=== PATIENT | female | born 1935 | race Caucasian/White ===

== ENCOUNTER 2017-07-24 09:13 | Observation (INO) | payer OTHER ==
[2017-07-24] MEDS ORDERED: ONDANSETRON 4 MG/2 ML VIAL IVP ONE (09:31)
[2017-07-24 09:47] LABS: PLATELET COUNT 270 10^3/uL (150-400)
--- NOTE | 2017-07-24 09:50 | EDPHY ---
H & P Time Seen by Provider: 07/24/17 09:23 HPI/ROS: CHIEF COMPLAINT: Vomiting and diarrhea HISTORY OF PRESENT ILLNESS: 82-year-old female presents with vomiting and diarrhea. Onset of nausea last evening, followed by multiple episodes of vomiting and loose stools. Unable to tolerate any oral fluids. The stools are loose, but not watery or bloody. No associated abdominal pain or fever. No known ill contacts. History of paroxysmal atrial fibrillation, previously on Xarelto, now off anticoagulation. Takes diltiazem daily, but did not take diltiazem today because of vomiting. REVIEW OF SYSTEMS: Constitutional: No fever, no chills Eyes: No visual changes ENT: No sore throat Respiratory: No cough, no shortness of breath Cardiac: No chest pain Genitourinary: no dysuria Musculoskeletal: No myalgias Skin: No rash Neurological: No headache Psychiatric: No depression Past Medical/Surgical History: Paroxysmal atrial fibrillation Social History: Lives at [facility] Smoking Status: Never smoked Physical Exam: General Appearance: Alert, pleasant, nontoxic Eyes: Pupils equal and round, no conjunctival pallor or injection ENT, Mouth: Mucous membranes moist Neck: Normal inspection Respiratory: Lungs are clear to auscultation Cardiovascular: regular tachycardia Gastrointestinal: Abdomen is soft and nontender Neurological: A&O, nonfocal exam Skin: Warm and dry, no rash Extremities: Nontender, no pedal edema Psychiatric: Mood and affect normal Constitutional: Initial Vital Signs Temperature (C) 36.6 C 07/24/17 09:18 Heart Rate 95 07/24/17 09:18 Respiratory Rate 17 07/24/17 09:18 Blood Pressure 155/88 H 07/24/17 09:18 O2 Sat (%) 93 07/24/17 09:18 O2 Delivery Mode Room Air Allergies/Adverse Reactions: amlodipine [From Norvasc] Allergy (Verified 07/24/17 11:34) light headedness atorvastatin calcium [From Lipitor] Allergy (Verified 07/24/17 11:34) muscle weakness nebivolol [From Bystolic] Allergy (Verified 07/24/17 11:34) fatigue pitavastatin Allergy (Verified 07/24/17 11:34) muscle weakness pravastatin Allergy (Verified 07/24/17 11:34) muscle weakness rosuvastatin [From Crestor] Allergy (Verified 07/24/17 11:34) musle weakness Home Medications: Medication Instructions Recorded Albuterol [Proventil Inhaler HFA 1 - 2 puffs IH Q6HRS PRN 09/27/13 (*)] Fluticasone Nasal [Flonase Nasal 1 sprays EACHNARE DAILY PRN 09/27/13 [place]] Diltiazem HCl [Diltiazem 24Hr Cd] 180 mg PO DAILY 04/04/16 Estradiol [VAGIFEM] 1 tab VG TUFR 04/04/16 Fluticasone Hfa 220 Mcg [Flovent 1 inh IH BID 04/04/16 220 MCG Hfa MDI (*)] Alendronate Sodium [Fosamax 70 MG 70 mg PO TU@0700 07/24/17 (*)] Loratadine 10 mg PO DAILY PRN 07/24/17 Medical Decision Making - Diagnostics EKG Interpretation: EKG interpreted by me reveals atrial fibrillation, ventricular rate 135, inferior Q waves. ED Course/Re-evaluation: This patient presents with vomiting and diarrhea, associated with moderate dehydration. IV normal saline 1 L ordered. After my exam, the patient's heart rate increased to the 140s and monitor revealed atrial fibrillation with RVR. EKG reveals no evidence of ischemia. She is asymptomatic with the atrial fibrillation and denies chest pain, shortness of breath or palpitations. IV normal saline 1 L infusing. If she continues to be in rapid atrial fibrillation after the 1st L of normal saline, I will proceed with rate control with diltiazem IV. 10:40 a.m.-after 1 L of normal saline, she remains in atrial fibrillation, with a ventricular rate in the 120s. She declines diltiazem at this time. She requests a 2nd L of IV fluids and then reassessment. Abd remains soft and NT. After 2nd liter of IVF, HR remains in the 130's. Agrees to Diltiazem IV. Diltiazem 10mg IV followed by a Diltiazem drip. HR improved, BP 90's, pt asymptomatic, will continue Dilt drip and IV hydration. The Hospitalist service was consulted for admission. Abd exam unchanged. Critical care time: this pt utilized 35 minutes of critical care time by me exclusive of unbundled procedures, exclusive of unbundled procedures. Time spent in direct patient contact, warehouse order picker, review of EKG and labs, consultation. Organ at risk: heart Differential Diagnosis: Differential diagnosis for vomiting and diarrhea includes though it is not limited to appendicitis, cholecystitis, diverticulitis, pyelonephritis, bowel perforation, small bowel obstruction. - Data Points Laboratory Results: Laboratory Results 07/24/17 09:37 07/24/17 09:37 Medications Given: Discontinued Medications Diltiazem HCl (Cardizem 25 Mg/5 Ml Vial) 10 mg IVP EDNOW ONE Stop: 07/24/17 11:05 Last Admin: 07/24/17 11:42 Dose: 10 mg Diltiazem HCl (Cardizem Er Q24hr) 180 mg PO DAILY [place] Stop: 01/20/18 11:59 Last Admin: 07/25/17 12:09 Dose: 180 mg Enoxaparin Sodium (Lovenox) 40 mg SC DAILY [facility] Stop: 01/21/18 08:59 Last Admin: 07/25/17 12:36 Dose: Not Given Fluticasone Propionate (Flovent Hfa) 1 puffs IH BID [facility] Stop: 01/20/18 20:59 Last Admin: 07/25/17 10:26 Dose: 1 puffs Sodium Chloride (Ns) 1,000 mls @ 0 mls/hr IV ONCE ONE; Wide Open PRN Reason: Protocol Stop: 07/24/17 09:47 Last Admin: 07/24/17 11:42 Dose: 1,000 mls Sodium Chloride (Ns) 1,000 mls @ 0 mls/hr IV ONCE ONE PRN Reason: Wide Open Stop: 07/24/17 11:03 Last Admin: 07/24/17 11:45 Dose: 1,000 mls Diltiazem HCl 125 mg/ Dextrose 125 mls @ 0 mls/hr IV EDNOW ONE; As Directed PRN Reason: Protocol Stop: 07/24/17 11:38 Last Admin: 07/24/17 13:48 Dose: Not Given Potassium Chloride 20 meq/ (Dextrose/Sodium Chloride) 1,000 mls @ 150 mls/hr IV CONT [facility] Stop: 01/20/18 11:59 Last Admin: 07/25/17 03:17 Dose: 1,000 mls Miscellaneous Medication (Estradiol [Vagifem]) 1 tab VG TUFR [facility] Stop: 01/20/18 11:59 Last Admin: 07/24/17 13:48 Dose: Not Given Ondansetron HCl (Zofran) 4 mg IVP EDNOW ONE Stop: 07/24/17 09:32 Last Admin: 07/24/17 09:57 Dose: 4 mg Departure - Departure Disposition: [facility] Inpatient Acute Clinical Impression: Acute gastroenteritis, Atrial fibrillation with RVR Condition: Fair
--- NOTE | 2017-07-24 09:50 | CPEKG ---
Heart Rate: 135 RR Interval: 444 QRSD Interval: 86 QT Interval: 324 QTC Interval: 486 QRS [place]: 30 T Wave [place]: 121 EKG Severity - ABNORMAL ECG - EKG Impression: ATRIAL FIBRILLATION, V-RATE 103-158 EKG Impression: PROBABLE INFERIOR INFARCT, OLD EKG Impression: REPOLARIZATION ABNORMALITY, PROB RATE RELATED EKG Impression: LATERAL LEADS ARE ALSO INVOLVED EKG Impression: BORDERLINE PROLONGED QT INTERVAL Electronically Signed By: Jen Nuno 24-Jul-2017 15:14:57
[2017-07-24] MEDS: NS 1,000 ML IV ONE ×2 (09:57→11:42)
[2017-07-24] MEDS ORDERED: NS 1,000 ML IV ONE (11:02)
[2017-07-24] MEDS ORDERED: DILTIAZEM 25 MG/5 ML VIAL IVP ONE (11:04)
[2017-07-24] MEDS ORDERED: DILTIAZEM 125 MG in D5W 125 ML IV ONE (11:37)
[2017-07-24] MEDS ORDERED: ONDANSETRON 4 MG/2 ML VIAL IVP PRN (11:44)
[2017-07-24] MEDS ORDERED: ACETAMINOPHEN 325 MG TAB PO PRN (11:44)
[2017-07-24] MEDS ORDERED: PROMETHAZINE HCL 25 MG/ML INJ IVP PRN (11:44)
[2017-07-24] MEDS ORDERED: PROMETHAZINE HCL 25 MG TAB PO PRN (11:44)
[2017-07-24] MEDS ORDERED: ONDANSETRON DISINTEGRATING 4 MG TAB PO PRN (11:44)
[2017-07-24] MEDS ORDERED: FLUTICASONE NASAL 120 SPRAYS/16 GM MDI EACHNARE PRN (11:47)
[2017-07-24] MEDS ORDERED: ALBUTEROL 60 PUFFS/8 GM MDI IH PRN (11:47)
[2017-07-24] MEDS ORDERED: ESTRADIOL VG SCH (12:00)
[2017-07-24] MEDS: DILTIAZEM CD 180 MG CAP PO SCH (13:09)
--- NOTE | 2017-07-24 13:32 | PDGENHP ---
History and Physical - Chief Complaint Acute vomiting - History of Present Illness Primary Cards: Dr. Kaiser HPI: 82 yo F p/w acute vomiting characterized as non-bloody emesis which has been intractable, occurring every 30 minutes, with onset of symptoms last PM. It has been associated with nausea and nonbloody diarrhea. The patient was otherwise in her usual state of health on the evening prior to this presentation , eating dinner with family and friends, no other person's became ill. The patient reported that her 1st symptom was nausea, followed by the intractable vomiting. She has been unable to tolerate any oral intake, as this seems to exacerbate the nausea. This morning she was unable to take her home medications secondary to the nausea. She reports that she has never experienced similar symptoms. She denies any overt abdominal pain, denies chest pain, denies palpitations or shortness of breath. History Information - Allergies/Home Medication List Allergies/Adverse Reactions: amlodipine [From Norvasc] Allergy (Verified 07/24/17 11:34) light headedness atorvastatin calcium [From Lipitor] Allergy (Verified 07/24/17 11:34) muscle weakness nebivolol [From Bystolic] Allergy (Verified 07/24/17 11:34) fatigue pitavastatin Allergy (Verified 07/24/17 11:34) muscle weakness pravastatin Allergy (Verified 07/24/17 11:34) muscle weakness rosuvastatin [From Crestor] Allergy (Verified 07/24/17 11:34) musle weakness Home Medications: Albuterol [Proventil Inhaler HFA (*)] 1 - 2 puffs IH Q6HRS PRN 09/27/13 [Last Taken 07/23/17 21:00] Fluticasone Nasal [Flonase Nasal [place]] 1 sprays EACHNARE DAILY PRN 09/27/13 [ Last Taken 09/26/13 06:00] Diltiazem HCl [Diltiazem 24Hr Cd] 180 mg PO DAILY 04/04/16 [Last Taken 07/23/17] Estradiol [VAGIFEM] 1 tab VG TUFR 04/04/16 [Last Taken 07/21/17] Fluticasone Hfa 220 Mcg [Flovent 220 MCG Hfa MDI (*)] 1 inh IH BID 04/04/16 [ Last Taken 07/23/17 21:00] Alendronate Sodium [Fosamax 70 MG (*)] 70 mg PO TU@0700 07/24/17 [Last Taken 09/06] Loratadine 10 mg PO DAILY PRN 07/24/17 [Last Taken Unknown] I have personally reviewed and updated: family history, medical history, social history, surgical history - Past Medical History atrial fibrillation (Paroxysmal, last ambulatory event monitor was 2 years ago, the patient reportedly had no events, systemic anticoagulation was discontinued , she was placed on low-dose aspirin), asthma (Persistent with allergic rhinitis ), CVA (With small lacunar infarcts in November of 2012), hypertension, hyperlipidemia Additional medical history: Osteoarthritis - Surgical History Additional surgical history: Cataracts, rotator cuff comma elbow ORIF, mastectomy x2, hysterectomy, tonsillectomy, DIC - Family History Additional family history: Father with sudden cardiac at age 76, mother with myocardial infarction at age 74, younger sibling with myocardial infarction - Social History Smoking Status: Never smoked Alcohol Use: Other (Patient regular has a glass of wine nightly) Drug Use: None Additional social history: Lives at [facility], physically active, no recent reduction in exercise tolerance Review of Systems Review of Systems: ROS: 10pt was reviewed & negative except for what was stated in HPI & below Gastrointestinal: Reports: vomitting, diarrhea, nausea Physical Exam Physical Exam: Temp Pulse Resp BP Pulse Ox 37.1 C 119 H 22 H 113/62 93 07/24/17 13:12 07/24/17 13:12 07/24/17 13:12 07/24/17 13:12 07/24/17 13:12 O2 (L/minute) 2.0 Constitutional: no apparent distress, appears nourished, not in pain Eyes: PERRL, anicteric sclera, EOMI Ears, Nose, Mouth, Throat: moist mucous membranes, hearing normal, ears appear normal, no oral mucosal ulcers Cardiovascular: systolic murmur (1/6 sternum), irregularly irregular, tachycardia, No edema Respiratory: no respiratory distress, no rales or rhonchi, clear to auscultation Gastrointestinal: normoactive bowel sounds, soft, non-tender abdomen, no palpable masses Genitourinary: other (Bladder fullness and mild discomfort on palpation) Skin: warm, No mottled, No rash Neurologic: AAOx3, sensation intact bilaterally, No weakness, No facial droop Psychiatric: interacting appropriately, not anxious, not encephalopathic, thought process linear Lab Data & Imaging Review 07/24/17 09:37 07/24/17 09:37 WBC 14.94 10^3/uL (3.80-9.50) H 07/24/17 09:37 RBC 5.17 10^6/uL (4.18-5.33) 07/24/17 09:37 Hgb 16.2 g/dL (12.6-16.3) 07/24/17 09:37 Hct 46.3 % (38.0-47.0) 07/24/17 09:37 MCV 89.6 fL (81.5-99.8) 07/24/17 09:37 MCH 31.3 pg (27.9-34.1) 07/24/17 09:37 MCHC 35.0 g/dL (32.4-36.7) 07/24/17 09:37 RDW 13.1 % (11.5-15.2) 07/24/17 09:37 Plt Count 270 10^3/uL (150-400) 07/24/17 09:37 MPV 10.1 fL (8.7-11.7) 07/24/17 09:37 Neut % (Auto) 93.6 % (39.3-74.2) H 07/24/17 09:37 Lymph % (Auto) 2.1 % (15.0-45.0) L 07/24/17 09:37 [place] % (Auto) 3.3 % (4.5-13.0) L 07/24/17 09:37 Eos % (Auto) 0.4 % (0.6-7.6) L 07/24/17 09:37 Baso % (Auto) 0.3 % (0.3-1.7) 07/24/17 09:37 Nucleat RBC Rel Count 0.0 % (0.0-0.2) 07/24/17 09:37 Absolute Neuts (auto) 13.98 10^3/uL (1.70-6.50) H 07/24/17 09:37 Absolute Lymphs (auto) 0.31 10^3/uL (1.00-3.00) L 07/24/17 09:37 Absolute Monos (auto) 0.50 10^3/uL (0.30-0.80) 07/24/17 09:37 Absolute Eos (auto) 0.06 10^3/uL (0.03-0.40) 07/24/17 09:37 Absolute Basos (auto) 0.04 10^3/uL (0.02-0.10) 07/24/17 09:37 Absolute Nucleated RBC 0.00 10^3/uL (0-0.01) 07/24/17 09:37 Immature Gran % 0.3 % (0.0-1.1) 07/24/17 09:37 Immature Gran # 0.05 10^3/uL (0.00-0.10) 07/24/17 09:37 Sodium 143 mEq/L (134-144) 07/24/17 09:37 Potassium 3.9 mEq/L (3.5-5.2) 07/24/17 09:37 Chloride 108 mEq/L (97-110) 07/24/17 09:37 Carbon Dioxide 20 mEq/l (22-31) L 07/24/17 09:37 Anion Gap 15 mEq/L (8-16) 07/24/17 09:37 BUN 19 mg/dL (7-23) 07/24/17 09:37 Creatinine 0.6 mg/dL (0.6-1.0) 07/24/17 09:37 Estimated GFR > 60 07/24/17 09:37 Glucose 150 mg/dL (70-100) H 07/24/17 09:37 Calcium 9.7 mg/dL (8.5-10.4) 07/24/17 09:37 Nasal Influenza A PCR NEGATIVE FOR FLU A (NEGATIVE) 07/24/17 09:50 Nasal Influenza B PCR NEGATIVE FOR FLU B (NEGATIVE) 07/24/17 09:50 Visualized and Interpreted Chest x-ray results: Yes Chest X-Ray results: no infiltrate Visualized and Interpreted EKG results: Yes EKG Interpretation: Negative for: other (Atrial fibrillation with rapid ventricular response, ST depression in lead V5) Assessment & Plan Assessment: 82-year-old female presenting with atrial fibrillation and acute rapid ventricular response, in the setting of systemic inflammatory response syndrome and suspected gastroenteritis Plan: 1. Atrial fibrillation. Paroxysmal, acute rapid ventricular response, asymptomatic, most likely provoked by gastroenteritis -patient declined IV diltiazem in the emergency department, she has tolerated her home dosage of oral diltiazem 180 mg this afternoon -given the patient is neither hypotensive no symptomatic from her rapid ventricular response, would recommend holding any additional p.r.n. medications and monitoring the affect of her oral diltiazem -reviewed outside records including 04/05/[address] Kamilla Owen, it identified that the patient had a history of AFib, was on diltiazem, had been taken off of Xarelto -continue IV fluid hydration, as the AFib is most likely being provoked by her volume status -continue home aspirin 2. Suspected gastroenteritis. Acute, new problem this provider, further workup indicated. Evidenced by nausea, vomiting, diarrhea, leukocytosis, abrupt onset -no red flag findings on physical exam, hold on any abdominal imaging at this time -get a GI PCR panel to ensure she does not have a particularly contagious virus -flu PCR neg -continue supportive care with antiemetics, IV fluids, Imodium if bacterial cause ruled out 3. Systemic inflammatory response syndrome. Acute, evidenced by leukocytosis, tachycardia, tachypnea, most likely secondary to gastroenteritis, I do not believe the patient has sepsis -continue IV fluids -continue monitor white blood cell count and vital signs 4. Hypertension. Hold any other home antihypertensive medications Diet. Bowel rest with NPO, sips and chips okay, advance diet as desired Prophylaxis. High risk patient, Lovenox 40 Code. Do not resuscitate per patient, is MD RODRIGUEZ Disposition. Anticipated discharge is 07/25/2017, pending further workup and stabilization of condition outlined above. I have discussed patient's presentation with Maxine Garvin, hospitalist provider , she has signed out the patient to me for evaluation.
[2017-07-24] MEDS: POTASSIUM Cl (KCl) 20 MEQ in D5W NS 1,000 ML IV SCH ×2 (13:43→21:48)
[2017-07-24] MEDS: FLUTICASONE HFA 220 MCG MDI IH SCH (21:31)
[2017-07-25] MEDS: POTASSIUM Cl (KCl) 20 MEQ in D5W NS 1,000 ML IV SCH (03:17)
[2017-07-25 04:10] LABS: PLATELET COUNT 215 10^3/uL (150-400)
[2017-07-25 08:05] VITALS: BP 124/61; PULSE 84; TEMP 98.6
[2017-07-25] MEDS ORDERED: CETIRIZINE 10 MG TAB PO PRN (09:00)
[2017-07-25] MEDS ORDERED: ENOXAPARIN 40 MG/0.4 ML SYR SC SCH (09:00)
[2017-07-25] MEDS: FLUTICASONE HFA 220 MCG MDI IH SCH (10:26)
[2017-07-25 10:37] VITALS: RESP 18; O2SAT 94
--- NOTE | 2017-07-25 11:01 | PDDCSUM ---
Discharge Summary Discharge Summary: DISCHARGE SUMMARY FOLLOW-UP ITEMS: Potentially repeat 30 day event monitor DATE OF ADMISSION: 07/24/2017 DATE OF DISCHARGE: 07/25/2017 DISCHARGE DIAGNOSES: 1. Suspected gastroenteritis 2. Paroxysmal atrial fibrillation with acute rapid ventricular response 3. Systemic inflammatory response syndrome CONSULTATIONS: None PROCEDURES / IMAGING: None CHIEF COMPLAINT: Acute nausea vomiting and diarrhea SUBJECTIVE: Patient is feeling well at time discharge, she has not had any subsequent episodes of diarrhea, she is tolerating an oral diet PHYSICAL EXAM ON DISCHARGE: Systolic blood pressure is 120-130, heart rate 80-90, normal sinus mechanism, satting on room air, abdomen is soft nontender, bowel sounds present, heart rhythm is regular, normal rate LABS ON DISCHARGE: Creatinine 0.6, potassium 3.9, white blood cell count 7000, hemoglobin 11.8, liver panel unremarkable HOSPITAL COURSE BY PROBLEM: The patient presented with acute suspected gastroenteritis evidenced by nausea vomiting and diarrhea, resulting in systemic inflammatory response syndrome with tachycardia, tachypnea, leukocytosis, which responded to bowel rest and supportive care with IV fluids and antiemetics. We attempted to perform a GI PCR panel, but the patient's symptoms resolved prior to being able to. The patient did experience provoked paroxysmal atrial fibrillation with acute rapid ventricular response and heart rates in the 130-140 range. Her Afib is notably asymptomatic. This is most likely secondary to hypovolemia and missing her morning dosage of diltiazem. The patient's nausea symptoms were controlled, she tolerated her oral diltiazem, and she received IV fluids, spontaneously cardioverting later in the day. She remained on telemetry overnight and did not have any subsequent episodes of paroxysmal atrial fibrillation. Her diet was advanced on the morning of July 25, and she tolerated oral diet without any issues. DISCHARGE MEDICATIONS: Please see official discharge medication reconciliation sheet in chart , continue home medications. DISCHARGE INSTRUCTIONS: Recommend potential outpatient 30 day event monitor through the office of Dr. Katie Kaiser, to reassess whether the patient experiences any asymptomatic paroxysmal atrial fibrillation which could require systemic anticoagulation for CVA prevention.
[2017-07-25] MEDS: DILTIAZEM CD 180 MG CAP PO SCH (12:09)
--- NOTE | 2017-07-25 12:20 | ASDISCHSUM ---
Discharge Information Plan Status:Home with No Needs Medically Cleared to Leave:07/24/2017 Discharge Date:07/25/2017 12:12 PM CM D/C Disposition:Home, Routine, Self-Care ADT D/C Disposition:Home, Routine, Self-Care Projected Discharge Date:07/25/2017 12:12 PM Transportation at D/C:Family Discharge Delay Reason: Follow-Up Date:07/25/2017 12:12 PM Discharge Slot:2 - 12:01 pm - 18:00 pm Final Diagnosis:Suspected gastroenteritis, paroxysmal afib w/ acute RVR, systemic inflammatory respo nse syndrome Placement Information Patient Contact Information Contact Name:DONNELL Relationship: Address:[address] [place] [address] City:[place] Alternate Phone: State/Zip Code:[place] [address] Email: Financial Information Financial Class: Primary Plan Desc:MEDICARE OUTPATIENT Primary Plan Number:[id number] Secondary Plan Desc:[employer] Secondary Plan Number:[id number] Assessment Information [facility] CM Progress Note CM Note CM Note Notes: Pt admitted for acute nausea and vomiting. Per MD notes, suspected gastroenteritis and systemic inflammatory response syndrome; pt to discharge home independently w/ family support and no identified needs. Pt lives at [facility] (in independent living) with her . Pt to follow up as directed. No IM signed, admission <24 hrs. CM avail for any further issues or concerns. Discharge plan: Home independently Date Signed: 07/25/2017 12:19 PM Electronically Signed By:Meenakshi Freeman RN Intervention Information
== END 2017-07-25 12:12 | disposition home or self-care (01) ==
LOC: F2W 12:50
PROVIDERS: ADMIT Internal Medicine; ATTEND Internal Medicine
PROC: 3E0337Z Introduction of Electrolytic and Water Balance Substance into Peripheral Vein, Percutaneous Approach (ICD-10-PCS; principal; 2017-07-24)
DX: R11.2 Nausea with vomiting, unspecified (principal); R19.7 Diarrhea, unspecified; R65.10 Systemic inflammatory response syndrome (SIRS) of non-infectious origin without acute organ dysfunction; I48.0 Paroxysmal atrial fibrillation; E86.9 Volume depletion, unspecified; I10 Essential (primary) hypertension; E78.5 Hyperlipidemia, unspecified; J45.909 Unspecified asthma, uncomplicated; Z79.82 Long term (current) use of aspirin; Z86.73 Personal history of transient ischemic attack (TIA), and cerebral infarction without residual deficits; Z82.49 Family history of ischemic heart disease and other diseases of the circulatory system; Z90.13 Acquired absence of bilateral breasts and nipples; Z90.710 Acquired absence of both cervix and uterus
CPT/HCPCS: 93005; 96361; 96374; 96375; 99291; G0378; J2405

== ENCOUNTER 2017-10-25 13:59 | Emergency (ER) | payer OTHER ==
--- NOTE | 2017-10-25 14:19 | CPEKG ---
Heart Rate: 155 RR Interval: 387 QRSD Interval: 84 QT Interval: 308 QTC Interval: 495 QRS [place]: 31 T Wave [place]: 78 EKG Severity - ABNORMAL ECG - EKG Impression: ATRIAL FIBRILLATION WITH RAPID V-RATE EKG Impression: ST DEPRESSION, PROBABLY RATE RELATED Electronically Signed By: Carine Pretty 25-Oct-2017 21:03:59
--- NOTE | 2017-10-25 14:28 | EDPHY ---
H & P Stated Complaint: hx a fib /tachycardia Time Seen by Provider: 10/25/17 14:28 HPI/ROS: CHIEF COMPLAINT: Feels "different," irregular heart rate HISTORY OF PRESENT ILLNESS: The patient is an 82 y/o female arriving with her complaining of feeling "different" with an irregular heart rate onset about 3 hours ago. Her medical history includes atrial fibrillation, asthma, CVA, hypertension, and hyperlipidemia with a recent admission for gastroenteritis in 2017. She began to feel "off" around 11:30 this morning just before going down to have lunch with her family. Afterwards she continued to "just feel different," but denies pain, dyspnea, or other specific symptoms. She and her checked her pulse and found it rapid and irregular. The patient took half a Xanax to see if her symptoms were related to anxiety, though she was not feeling particularly anxious; this did not change her symptoms. She is compliant with her Diltazem and took 180mg this morning. She takes aspirin, but discontinued anticoagulants after a fall. No dyspnea, chest pain, leg swelling, abdominal pain, vomiting, diarrhea, urinary symptoms. No history of diabetes or WI. REVIEW OF SYSTEMS: A ten point review of systems was performed and is negative with the exception of the items mentioned in the HPI. Past medical history: Atrial fibrillation - aspirin, asthma - Flovent, allergic rhinitis, CVA with small lacunar infarcts November 2012, hypertension, hyperlipidemia Past surgical history: cataracts, rotator cuff, elbow ORIF, mastectomy x2, hysterectomy, tonsillectomy Family history: Sudden cardiac of father at age 76, mother with WI at age 74, younger sibling with WI. Social history: Nonsmoker. Small amount of alcohol use. 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 Lives at [facility]. Patient Resource Coordinator: Dr. Kaiser. PCP: Dr. Houston. Prior medical records reviewed including admission 07/24/17 for vomiting. General Appearance: Alert. Vital signs reviewed. BP 126/99, HR 150 Eyes: Pupils equal and round, no conjunctival injection, no discharge. Anicteric. ENT, Mouth: Mucous membranes are moist, no oropharyngeal erythema or edema. Neck: No lymphadenopathy, supple. Respiratory: Lungs are clear to auscultation; no wheezes, rales, or rhonchi. Cardiovascular: Rapid irregular rate and rhythm; no murmur, rub, or gallop. Gastrointestinal: Abdomen is soft and nontender, no masses or organomegaly. Skin: Warm and dry, no rashes on exposed skin, normal color. Back: Nontender to palpation over the thoracolumbar spine. No CVAT. Extremities: No lower extremity edema, no calf tenderness or swelling. Neurological: Alert and oriented. Moving all four extremities easily and equally. Psychiatric: Normal affect. - Personal History Current Tetanus/Diphtheria Vaccine: Yes Tetanus Vaccine Date: 2006 - Medical/Surgical History Hx Asthma: Yes Hx Chronic Respiratory Disease: No Hx Diabetes: No Hx Cardiac Disease: Yes Hx Renal Disease: No Hx Cirrhosis: No Hx Alcoholism: No Hx HIV/AIDS: No Hx Splenectomy or Spleen Trauma: No Other PMH: HX: ASTHMA, MILD ALLERGIC RHINITIS, GLASSES, HTN, EAR INFECTIONS WITH MILD HEARING LOSS, TONSILLECTOMY, MISCARRIAGES, POLYHYDRAMNIOS WITH , HYSTERECTOMY, B SUBCUTANEOUS MASTECTOMIES, FIBROCYSTIC. DISEASE, ELBOW FX, ROTATOR CUFF TEARS AND REPAIRS, CATARACTS SURGERY, STROKE NOVEMBER 2012, afib - Social History Smoking Status: Never smoked Constitutional: Initial Vital Signs Temperature (C) 36.5 C 10/25/17 14:03 Heart Rate 156 H 10/25/17 14:03 Respiratory Rate 20 10/25/17 14:03 Blood Pressure 153/125 H 10/25/17 14:03 O2 Sat (%) 94 10/25/17 14:03 O2 Delivery Mode Room Air Allergies/Adverse Reactions: amlodipine [From Norvasc] Allergy (Verified 10/25/17 14:02) light headedness atorvastatin calcium [From Lipitor] Allergy (Verified 10/25/17 14:02) muscle weakness nebivolol [From Bystolic] Allergy (Verified 10/25/17 14:02) fatigue pitavastatin Allergy (Verified 10/25/17 14:02) muscle weakness pravastatin Allergy (Verified 10/25/17 14:02) muscle weakness rosuvastatin [From Crestor] Allergy (Verified 10/25/17 14:02) musle weakness Home Medications: Medication Instructions Recorded Albuterol [Proventil Inhaler HFA 1 - 2 puffs IH Q6HRS PRN 09/27/13 (*)] Diltiazem HCl [Diltiazem 24Hr Cd] 180 mg PO DAILY 04/04/16 Fluticasone Hfa 220 Mcg [Flovent 1 inh IH BID 04/04/16 220 MCG Hfa MDI (*)] Alendronate Sodium [Fosamax 70 MG 70 mg PO TU@0700 07/24/17 (*)] Loratadine 10 mg PO DAILY PRN 07/24/17 ALPRAZolam [Xanax 0.25 MG (*)] 0.125 mg PO HS PRN 10/25/17 Aspirin EC [Aspirin EC 81 mg (*)] 81 mg PO DAILY 10/25/17 Cholecalciferol Vit D3 [Vitamin D3 1,000 units PO DAILY 10/25/17 (*)] Cyanocobalamin (Vitamin B-12) 1,000 mcg PO DAILY 10/25/17 [B-12] Estradiol [Yuvafem] 10 mcg VG TUFR@07 10/25/17 Herbals/Supplements -Info Only 1 ea PO DAILY 10/25/17 Sodium Cl Nasal [[place] (*)] 1 spray EACHNARE PRN PRN 10/25/17 Medical Decision Making - Diagnostics Imaging: I viewed and interpreted images myself ED Course/Re-evaluation: Plan for IV, labs, EKG, chest x-ray, rate control with IV Diltazem bolus and drip. 1L IV NS ordered. The 12 lead EKG was interpreted by myself. Rapid atrial fibrillation. See hard copy and/or "tracemaster" electronic copy for interpretation. Spoke with hospitalist service. Dr. Lawson accepts admission for rapid atrial fibrillation. 1555: Reassessed patient. She has converted to a sinus rhythm. 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 Will repeat EKG and consult cardiology. Repeat 12 lead EKG was interpreted by myself. Sinus mechanism rate 85. See hard copy and/or "tracemaster" electronic copy for interpretation. I reviewed laboratories. Troponin is normal. Sodium is slightly high at 146. 1613: Consulted with Dr. Sauceda, early head start director. He will help arrange for outpatient follow up. Reassessed patient and discussed plan. Return precautions discussed. She is comfortable with this plan. She was hypertensive on arrival. Blood pressure at discharge was 140/68. She has a history of hypertension. Differential Diagnosis: I considered a differential diagnosis of atrial fibrillation that includes medication noncompliance, ACS, valvular disease, hypertension, endocrine abnormality, stimulant use. - Data Points Laboratory Results: Laboratory Results 10/25/17 14:25 10/25/17 14:25 Medications Given: Discontinued Medications Diltiazem HCl (Cardizem) 10 mg IV EDNOW ONE Stop: 10/25/17 15:16 Last Admin: 10/25/17 15:15 Dose: 10 mg Sodium Chloride (Ns) 500 mls @ 1,500 mls/hr IV ONCE ONE Stop: 10/25/17 15:55 Last Admin: 10/25/17 15:37 Dose: 500 mls Departure - Departure Disposition: Home, Routine, Self-Care Clinical Impression: Atrial fibrillation with RVR Condition: Good Instructions: A-fib (Atrial Fibrillation) (ED) Additional Instructions: 1. Call Dr. Kaiser's office first thing tomorrow morning to schedule a follow up appointment for the next few days. They are expecting to hear from you tomorrow. 2. Return to the ED for recurrent symptoms, chest pain, shortness of breath, lightheadedness, fainting, or any worsening of condition. 3. It's okay to take 1 additional dose of 180mg Diltazem if your heart rate becomes irregular and fast again. Referrals: Marlee Houston MD [Primary Care Provider] - As per Instructions Katie Kaiser MD [Medical Doctor] - Report Scribed for: Carine Pretty Report Scribed by: Emily Woods Date of Report: 10/25/17 Time of Report: 14:38 Physician Review and Approval Statement: 10/30/17 15:13 Portions of this note were transcribed by the medical biller coder. I, Dr. Carine Pretty, personally performed the history, physical exam, and medical decision- making; and confirmed the accuracy of the information in the transcribed note.
[2017-10-25 14:47] LABS: PLATELET COUNT 288 10^3/uL (150-400)
[2017-10-25] MEDS ORDERED: DILTIAZEM 125 MG in D5W 125 ML IV ONE (14:51)
[2017-10-25] MEDS ORDERED: DILTIAZEM 25 MG/5 ML VIAL IVP ONE (14:51)
[2017-10-25 15:01] LABS: INR 0.96 (0.83-1.16)
[2017-10-25] MEDS ORDERED: DILTIAZEM 50 MG/10 ML VIAL IV ONE (15:15)
[2017-10-25] MEDS ORDERED: NS 500 ML IV ONE (15:36)
--- NOTE | 2017-10-25 16:11 | CPEKG ---
Heart Rate: 85 RR Interval: 706 P-R Interval: 172 QRSD Interval: 80 QT Interval: 364 QTC Interval: 433 P Zirconia: 4 QRS Zirconia: -4 T Wave Zirconia: 41 EKG Severity - NORMAL ECG - EKG Impression: SINUS RHYTHM Electronically Signed By: Carine Pretty 25-Oct-2017 21:03:49
[2017-10-25 17:05] VITALS: BP 140/78
== END 2017-10-25 16:30 | disposition home or self-care (01) ==
LOC: UNDOADMOB 15:12
DX: I48.91 Unspecified atrial fibrillation (principal); I10 Essential (primary) hypertension; J45.909 Unspecified asthma, uncomplicated; Z79.82 Long term (current) use of aspirin; Z86.73 Personal history of transient ischemic attack (TIA), and cerebral infarction without residual deficits
CPT/HCPCS: 96374

== ENCOUNTER 2018-01-01 07:43 | Day surgery (SDC) | payer OTHER ==
[2018-01-01] MEDS ORDERED: NS 500 ML IV ONE (07:45)
[2018-01-01] MEDS ORDERED: fentaNYL 100 MCG/2 ML INJ IVP ONE (07:45)
[2018-01-01] MEDS ORDERED: BENZOCAINE UNIT DOSE SPRAY HURRICAINE MM ONE (07:45)
[2018-01-01] MEDS ORDERED: MIDAZOLAM 2 MG/2 ML VIAL IVP ONE (07:45)
--- NOTE | 2018-01-01 08:27 | PDANEPAE ---
ANE History of Present Illness 82 year old female presents for SAIMA. ANE Past Medical History - Cardiovascular History Hx Hypertension: Yes Hx Arrhythmias: Yes Hx Chest Pain: No Hx Palpitations: Yes Cardiovascular History Comment: History of paroxysmal A.Fib; prior episodes of A. Fib w/ RVR - Pulmonary History Hx COPD: No Hx Asthma/Reactive Airway Disease: Yes Hx Recent Upper Respiratory Infection: No Hx Oxygen in Use at Home: No Hx Sleep Apnea: No - Neurologic History Hx Cerebrovascular Accident: Yes Hx Seizures: No Hx Dementia: No Neurologic History Comment: History of Lacunar infarct in 2012. Patient states she has left foot drag with she becomes fatigued. - Endocrine History Hx Diabetes: No Hypothyroid: No Hyperthyroid: No Obesity: no - Renal History Hx Renal Disorders: No - Liver History Hx Hepatic Disorders: No - Neurological & Psychiatric Hx Hx Neurological and Psychiatric Disorders: No - Cancer History Hx Cancer: No - Congenital Disorder History Hx Congenital Disorders: No - GI History GERD: no Hx Gastrointestinal Disorders: No - Chronic Pain History Chronic Pain: No ANE Review of Systems Review of Systems: - Exercise capacity Exercise capacity: >=4 METS ANE Patient History - Allergies Allergies/Adverse Reactions: amlodipine [From Norvasc] Allergy (Verified 10/25/17 14:02) light headedness atorvastatin calcium [From Lipitor] Allergy (Verified 10/25/17 14:02) muscle weakness nebivolol [From Bystolic] Allergy (Verified 10/25/17 14:02) fatigue pitavastatin Allergy (Verified 10/25/17 14:02) muscle weakness pravastatin Allergy (Verified 10/25/17 14:02) muscle weakness rosuvastatin [From Crestor] Allergy (Verified 10/25/17 14:02) musle weakness - Home Medications Home medications: home medication list seen and reviewed Home Medications: Albuterol [Proventil Inhaler HFA (*)] 1 - 2 puffs IH Q6HRS PRN 09/27/13 [Last Taken 07/23/17 21:00] Diltiazem HCl [Diltiazem 24Hr Cd] 180 mg PO DAILY 04/04/16 [Last Taken 10/25/17] Fluticasone Hfa 220 Mcg [Flovent 220 MCG Hfa MDI (*)] 1 inh IH BID 04/04/16 [ Last Taken 10/25/17] Alendronate Sodium [Fosamax 70 MG (*)] 70 mg PO TU@0700 07/24/17 [Last Taken 10/04] Loratadine 10 mg PO DAILY PRN 07/24/17 [Last Taken Unknown] ALPRAZolam [Xanax 0.25 MG (*)] 0.125 mg PO HS PRN 10/25/17 [Last Taken Unknown] Aspirin EC [Aspirin EC 81 mg (*)] 81 mg PO DAILY 10/25/17 [Last Taken Unknown] Cholecalciferol Vit D3 [Vitamin D3 (*)] 1,000 units PO DAILY 10/25/17 [Last Taken Unknown] Cyanocobalamin (Vitamin B-12) [B-12] 1,000 mcg PO DAILY 10/25/17 [Last Taken Unknown] Estradiol [Yuvafem] 10 mcg VG TUFR@07 10/25/17 [Last Taken 10/20/17] Herbals/Supplements -Info Only 1 ea PO DAILY 10/25/17 [Last Taken Unknown] Sodium Cl Nasal [[place] (*)] 1 spray EACHNARE PRN PRN 10/25/17 [Last Taken Unknown] - NPO status NPO Status: no food or drink >8 hours - Anes Hx Anes Hx: no prior problems - Smoking Hx Smoking Status: Never smoked Marijuana use: No - Alcohol Use Alcohol Use: Rarely - Family Anes Hx Family Anes Hx: neg - N/A ANE Labs/Vital Signs - Vital Signs Height: 152 cm Weight: 51.7 kg ANE Physical Exam - Airway Neck exam: FROM Mallampati Score: Class 2 Mouth exam: normal dental/mouth exam - Pulmonary Pulmonary: no respiratory distress - Cardiovascular Cardiovascular: regular rate and rhythym - ASA Status ASA Status: III ANE Anesthesia Plan Anesthesia Plan: GA with mask Total IV Anesthesia: Yes
[2018-01-01] MEDS ORDERED: ATROPINE SULFATE 1 MG/10 ML SYR ONE (08:47)
[2018-01-01] MEDS ORDERED: PROPOFOL/EMULSION 500 MG/50 ML BOTTLE IV ONE (08:51)
[2018-01-01] MEDS ORDERED: PHENYLEPHRINE HCL 100 MCG/ML SYR ONE (08:58)
--- NOTE | 2018-01-01 09:13 | PDHPUP ---
History & Physical Update H&P update statement: This history and physical update is based on an assessment of the patient which was completed after admission or registration (within 24 hours), but prior to the surgery/procedure. H&P update: H&P reviewed & patient examined, no change in patient's condition since H&P completed
--- NOTE | 2018-01-01 11:22 | POSTANESTH ---
Post Anesthetic Evaluation Cardiovascular Status: Normal, Stable, Similar to Pre-Op Cond Respiratory Status: Normal, Stable, Similar to Pre-op Cond. Level of Consciousness/Mental Status: Can Participate in Eval, Alert and Oriented Pain Control: Adequate, Prn Tx Ordered Nausea/Vomiting Control: Adequate, Prn Tx Ordered Complications Possibly Related to Anesthesia: None Noted (Patient tolerated anesthetic and procedure well. No issues.)
--- NOTE | 2018-01-01 11:52 | ECHO ---
[email or web address] [address] Main: [phone] Fax: Transesophageal Echocardiography Name: ROQUE DUMONT MR#: [id number] Study Date: 01/01/2018 Study Time: 08:56 AM Date of : 1935 Age: 82 year(s) Height: ( ) Weight: ( ) BSA: Gender: Female Examination: SAIMA Indication: Eval left atrial appendage (pre Watchman) Image Quality: Contrast: Requested by: Katie Kaiser Heart Rate: Rhythm: BP: 184 mmHg/105 mmHg Procedure Staff Title Investigator: Alba Taylor RDCS Reading Physician: Katie Kaiser MD Requesting Provider: Sancho Simpson SAIMA Exam Details Conclusions: Normal global systolic LV function. An agitated saline study was performed and was negative for intracardiac shunting. No thrombus in left appendage. The aortic valve is tri-leaflet. Trivial aortic valve regurgitation. LONNIE appendage measurements 0 degrees 1.3cm X 1.8cm 45 degrees 1.5cm X 2.0cm 90 degrees 1.4cm X 1.5cm 135 degrees 1.5cm X 1.2cm. Roque Has an elevated CHADS2 Vasc score of 6 and is a poor candidate for long-term anticoagulation therapy due to frequent falls with injury. She will be referred to the [facility] for Watchman evaluation. Measurements: Chambers Valvular Assessment AV/MV Valvular Assessment TV/PV Normal Normal Normal Name Value Range Name Value Range Name Value Range Additional Measurements: Findings: Left Ventricle: Normal global systolic LV function. Left Atrium: An agitated saline study was performed and was negative for intracardiac shunting. Patient: ROQUE DUMONT Study Date: 01/01/2018 Page 1 of 2 08:56 AM Left Atrial Appendage: No thrombus in left appendage. Aortic Valve: The aortic valve is tri-leaflet. Trivial aortic valve regurgitation. Pulmonic Valve: Trivial pulmonic valve regurgitation. Exam Comments: LONNIE appendage measurements 0 degrees 1.3cm X 1.8cm 45 degrees 1.5cm X 2.0cm 90 degrees 1.4cm X 1.5cm 135 degrees 1.5cm X 1.2cm. l1n (No Signature Object) Patient: ROQUE DUMONT Study Date: 01/01/2018 Page 2 of 2 08:56 AM [id number]
== END 2018-01-01 11:00 | disposition home or self-care (01) ==
LOC: FCATH 07:43
PROVIDERS: ATTEND Internal Medicine Cardiovascular Disease
PROC: B245ZZ4 Ultrasonography of Left Heart, Transesophageal (ICD-10-PCS; principal; 2018-01-01)
DX: Z01.810 Encounter for preprocedural cardiovascular examination (principal); I48.91 Unspecified atrial fibrillation; E78.5 Hyperlipidemia, unspecified; I10 Essential (primary) hypertension; M81.0 Age-related osteoporosis without current pathological fracture; J45.909 Unspecified asthma, uncomplicated; Z79.82 Long term (current) use of aspirin; Z85.3 Personal history of malignant neoplasm of breast; Z86.73 Personal history of transient ischemic attack (TIA), and cerebral infarction without residual deficits; Z82.49 Family history of ischemic heart disease and other diseases of the circulatory system; Z90.13 Acquired absence of bilateral breasts and nipples; Z91.81 History of falling
CPT/HCPCS: J0461; J2370; J2704

== ENCOUNTER 2018-02-15 07:35 | Inpatient (IN) | payer OTHER ==
[2018-02-15] MEDS ORDERED: NS 1,000 ML IV ONE (07:44)
[2018-02-15] MEDS ORDERED: ceFAZolin 2 GM/DEXTROSE 100 ML IV ONE (08:00)
[2018-02-15] MEDS ORDERED: IOPAMIDOL (ISOVUE-300) 150 ML BTL ONE (09:16)
[2018-02-15] MEDS ORDERED: HEPARIN 10,000 UNIT/10 ML MDV (1,000 UNIT/ML) ONE (09:16)
--- NOTE | 2018-02-15 09:30 | PDPROPOC ---
Sedation Plan of Care Sedation Plan of Care: mental status noted, patient educated of risks, benefits , alternatives, patient can tolerate sedation ASA Classification: ASA 2 Planned drugs: other Mallampati Score: Class 2 Mallampati Reference Image: Patient passed 3-3-2 rule?: Yes
--- NOTE | 2018-02-15 09:46 | PDANEPAE ---
ANE History of Present Illness here for watchman JEROME Past Medical History - Cardiovascular History Hx Hypertension: Yes Hx Arrhythmias: Yes Hx Chest Pain: No Hx Palpitations: Yes Cardiovascular History Comment: History of paroxysmal A.Fib; prior episodes of A. Fib w/ RVR - Pulmonary History Hx COPD: No Hx Asthma/Reactive Airway Disease: Yes Hx Recent Upper Respiratory Infection: No Hx Oxygen in Use at Home: No Hx Sleep Apnea: No - Neurologic History Hx Cerebrovascular Accident: Yes Hx Seizures: No Hx Dementia: No Neurologic History Comment: History of Lacunar infarct in 2012. Patient states she has left foot drag with she becomes fatigued. - Endocrine History Hx Diabetes: No - Renal History Hx Renal Disorders: No - Liver History Hx Hepatic Disorders: No - Neurological & Psychiatric Hx Hx Neurological and Psychiatric Disorders: No - Cancer History Hx Cancer: No - Congenital Disorder History Hx Congenital Disorders: No - GI History Hx Gastrointestinal Disorders: No - Chronic Pain History Chronic Pain: No ANE Review of Systems Review of systems is: negative Review of Systems: - Exercise capacity Exercise capacity: >=4 METS ANE Patient History - Allergies Allergies/Adverse Reactions: amlodipine [From Norvasc] Allergy (Verified 10/25/17 14:02) light headedness atorvastatin calcium [From Lipitor] Allergy (Verified 10/25/17 14:02) muscle weakness nebivolol [From Bystolic] Allergy (Verified 10/25/17 14:02) fatigue pitavastatin Allergy (Verified 10/25/17 14:02) muscle weakness pravastatin Allergy (Verified 10/25/17 14:02) muscle weakness rosuvastatin [From Crestor] Allergy (Verified 10/25/17 14:02) musle weakness - Home Medications Home medications: home medication list seen and reviewed Home Medications: Albuterol [Proventil Inhaler HFA (*)] 1 - 2 puffs IH Q6HRS PRN 09/27/13 [Last Taken 07/23/17 21:00] Diltiazem HCl [Diltiazem 24Hr Cd] 180 mg PO DAILY 04/04/16 [Last Taken 10/25/17] Fluticasone Hfa 220 Mcg [Flovent 220 MCG Hfa MDI (*)] 1 inh IH BID 04/04/16 [ Last Taken 10/25/17] Alendronate Sodium [Fosamax 70 MG (*)] 70 mg PO TU@0700 07/24/17 [Last Taken 10/04] Loratadine 10 mg PO DAILY PRN 07/24/17 [Last Taken Unknown] ALPRAZolam [Xanax 0.25 MG (*)] 0.125 mg PO HS PRN 10/25/17 [Last Taken Unknown] Cholecalciferol Vit D3 [Vitamin D3 (*)] 1,000 units PO DAILY 10/25/17 [Last Taken Unknown] Cyanocobalamin (Vitamin B-12) [B-12] 1,000 mcg PO DAILY 10/25/17 [Last Taken Unknown] Herbals/Supplements -Info Only 1 ea PO DAILY 10/25/17 [Last Taken Unknown] Estradiol [Yuvafem] 10 mcg VG TU@02/11/18 [Last Taken Unknown] Fluticasone Nasal [Flonase Nasal [place] (RX)] 1 sprays NASAL DAILY PRN 02/11/18 [ Last Taken Unknown] Naproxen Sodium [Aleve 220 MG (*)] 220 mg PO HS PRN 02/11/18 [Last Taken Unknown ] - Smoking Hx Smoking Status: Never smoked ANE Labs/Vital Signs - Vital Signs Height: 149.86 cm Weight: 51.71 kg ANE Physical Exam - Airway Neck exam: FROM Mallampati Score: Class 1 - Pulmonary Pulmonary: no respiratory distress - Cardiovascular Cardiovascular: regular rate and rhythym - ASA Status ASA Status: III ANE Anesthesia Plan Anesthesia Plan: general endotracheal anesthesia
[2018-02-15] MEDS ORDERED: PROPOFOL/EMULSION 500 MG/50 ML BOTTLE IV ONE (09:50)
[2018-02-15] MEDS ORDERED: fentaNYL 100 MCG/2 ML INJ ONE (09:51)
[2018-02-15] MEDS ORDERED: LIDOCAINE 1% 300 MG/30 ML SDV ONE (10:13)
[2018-02-15] MEDS ORDERED: PHENYLEPHRINE HCL 100 MCG/ML SYR ONE (10:13)
[2018-02-15] MEDS ORDERED: PROTAMINE SULFATE 50 MG/5 ML VIAL IVP ONE (10:55)
[2018-02-15] MEDS ORDERED: SUGAMMADEX SODIUM 200 MG/2 ML VIAL IVP ONE (10:57)
[2018-02-15] MEDS ORDERED: LORazepam 2 MG/ML INJ IVP PRN (11:05)
[2018-02-15] MEDS ORDERED: ATROPINE SULFATE 1 MG/10 ML SYR IVP PRN (11:05)
[2018-02-15] MEDS ORDERED: HYDROCODONE/APAP 5/325 TAB PO PRN (11:05)
[2018-02-15] MEDS ORDERED: OXYCODONE/APAP 5/325 TAB PO PRN (11:05)
[2018-02-15] MEDS ORDERED: ONDANSETRON 4 MG/2 ML VIAL IVP PRN (11:05)
[2018-02-15] MEDS ORDERED: TEMAZEPAM 15 MG CAP PO PRN (11:05)
[2018-02-15] MEDS ORDERED: NITROGLYCERIN 0.4 MG BTL SL PRN (11:05)
[2018-02-15] MEDS ORDERED: ALBUTEROL 60 PUFFS/8 GM MDI IH PRN (11:07)
[2018-02-15] MEDS ORDERED: FLUTICASONE NASAL 120 SPRAYS/16 GM MDI NS PRN (11:07)
[2018-02-15] MEDS ORDERED: ALPRAZolam 0.25 MG TAB PO PRN (11:07)
[2018-02-15] MEDS ORDERED: NAPROXEN SODIUM 220 MG TAB PO PRN (11:07)
--- NOTE | 2018-02-15 11:34 | CPIP ---
[f rep st] INVASIVE CARDIAC PROCEDURE DATE OF PROCEDURE: 02/15/2018 INDICATION FOR PROCEDURE: Atrial fibrillation, bleeding inability to tolerate long-term anticoagulat ion therapy. CO-SURGEONS: Dr. Jose Sauceda, Dr. Katie Kaiser, Dr. César Leach. PROCEDURE: 1. 8-Polish sheath right common femoral vein. 2. Transseptal access with Matthews catheter and wire. 3. Placement of Watchman 24 mm device by the transfemoral route. INDICATIONS: Briefly, this is an 83-year-old female with history of paroxysmal atrial fibrillation, elevated CHADS VASc score and inability to tolerate long-term antiplatelet therapy secondary to bleed ing, who was consented for Watchman placement. DESCRIPTION OF PROCEDURE: After informed consent was obtained, the patient was brought to [facility] where the patient was electively intubated. SIAMA performed by Dr. Katie Kaiser. The patient was administered 2 g Ancef IV as well as 8000 heparin after right venous access obtained. Transseptal access was obt ained with a Matthews catheter and wire. With a pigtail catheter in the left atrial appendage this was exchanged out for the Watchman sheath. Watchman sheath was placed into the left atrial appendage ov er the pigtail catheter. Angiography revealed a broccoli-esk type appendage. Catheter was placed in the broccoli and pigtail catheter removed. Placement of a 24 mm Watchman device was then placed int o the appendage. Post deployment, there was no perivalvular or bonnie-structural leak noted. The dieter ent passed the PASS criteria. Device was deployed. The sheath was pulled back into the right atrium and then removed from the body with a pursestring suture after pursestring suture was placed. Patie nt tolerated the procedure well. No complications. IMPRESSION: Successful placement of Watchman 24 mm via transseptal route. PLAN: The patient will be admitted to the floor. Suture will be removed in 24 hours. Patient larry ated the procedure well no complications. IMPRESSION: Successful placement of Watchman placement. Further orders following clinical course. /[id number]/MODL
--- NOTE | 2018-02-15 11:42 | CPEKG ---
Heart Rate: 71 RR Interval: 845 P-R Interval: 184 QRSD Interval: 98 QT Interval: 432 QTC Interval: 470 P Menan: 80 QRS Menan: 25 T Wave Menan: 62 EKG Severity - NORMAL ECG - EKG Impression: SINUS RHYTHM Electronically Signed By: Kelley Ivy 15-Feb-2018 17:11:04
--- NOTE | 2018-02-15 13:06 | ECHO ---
[email or web address] [id number] Main: [phone] Fax: Transesophageal Echocardiography Name: ROQUE DUMONT MR#: [id number] Study Date: 02/15/2018 Study Time: 10:01 AM Date of : 1935 Age: 83 year(s) Height: ( ) Weight: ( ) BSA: Gender: Female Examination: SAIMA Indication: afib; watchman procedure Image Quality: Adequate Contrast: Requested by: Sancho Simpson Heart Rate: Rhythm: BP: / Procedure Staff Lead Qa Analyst: Kelsey Sutherland [facility] Reading Physician: Katie Kaiser MD Requesting Provider: Sancho Simpson SAIMA Exam Details Conclusions: Successful deployment of a 24 mm Watchman device. Measurements: Chambers Valvular Assessment AV/MV Valvular Assessment TV/PV Normal Normal Normal Name Value Range Name Value Range Name Value Range Additional Measurements: Findings: Left Ventricle: Normal size left ventricle. Normal global systolic LV function. Right Ventricle: Normal size right ventricle. Normal RV function. Left Atrial Appendage: No thrombus in left appendage. There was a successful deployment of a 24mm Watchman device in the left atrial appendage. There was 19-32% compression with this device. The device appears to be well seated. No obvious color flow jet. . Mitral Valve: The mitral valve is normal in appearance. Mild mitral valve regurgitation is present. Pericardium: Trivial anterior pericardial effusion. The effusion remain unchanged pre and postprocedure.. Patient: ROQUE DUMONT Study Date: 02/15/2018 Page 1 of 2 10:01 AM l1n (No Signature Object) Patient: ROQUE DUMONT Study Date: 02/15/2018 Page 2 of 2 10:01 AM [id number]
--- NOTE | 2018-02-15 15:43 | POSTANESTH ---
Post Anesthetic Evaluation Cardiovascular Status: Normal, Stable Respiratory Status: Normal, Stable Level of Consciousness/Mental Status: Can Participate in Eval Pain Control: Adequate, Prn Tx Ordered Nausea/Vomiting Control: Adequate, Prn Tx Ordered Complications Possibly Related to Anesthesia: None Noted
--- NOTE | 2018-02-15 18:07 | PDMN ---
Medical Necessity Medical necessity: [facility] IP only surgery, cpt 61830 Left Atrial Appendage Closure Device (Watchman)
[2018-02-15] MEDS ORDERED: FLUTICASONE HFA 220 MCG MDI IH SCH (21:00)
[2018-02-15] MEDS: APIXABAN 2.5 MG TAB PO SCH (21:24)
[2018-02-16 04:49] LABS: PLATELET COUNT 199 10^3/uL (150-400)
[2018-02-16] MEDS ORDERED: ALENDRONATE SODIUM 70 MG TAB PO SCH (07:00)
[2018-02-16] MEDS ORDERED: ESTRADIOL VG SCH (07:00)
--- NOTE | 2018-02-16 07:08 | PDCARPN ---
Cardiology Progress Note Chief Complaint: s/p watchman Assessment/Plan: Assessment: s/p watchman Plan: 02/16/18 07:07 doing well no CP d/c home today f/u 1 week d/c suture in groin this AM 02/16/18 07:08 Subjective: no complaints Reviewed/Discussed With: multidisciplinary team Time Spent with Patient: greater than 25 minutes Time Spent with Patient: Greater than 25 minutes spent on this patients care, greater than 50% of time spent counseling, educating, and coordinating care regarding the above mentioned plan. Objective: Vital Signs (8 Hrs) Temp Pulse Resp BP Pulse Ox 02/16/18 03:14 37.0 C 75 18 135/68 H 94 02/15/18 23:43 37.1 C 81 16 135/60 H 95 Intake/Output (24 Hrs) 02/15/18 02/16/18 02/17/18 05:59 05:59 05:59 Intake Total 700 Balance 700 Intake: Oral (ml) 700 Other: Weight 51.71 kg Number of Voids Toilet 1 Result Diagrams: 02/16/18 03:10 02/16/18 03:10 - Physical Exam Constitutional: healthy appearing Eyes: PERRL Ears, Nose, Mouth, Throat: moist mucous membranes Cardiovascular: regular rate and rhythm Peripheral Pulses: 1+: femoral (R), femoral (L) Respiratory: clear to auscultate bilat Gastrointestinal: normoactive bowel sounds Genitourinary: no suprapubic tenderness Skin: no rashes Musculoskeletal: no muscular tenderness Neurologic: AAOx3 Psychiatric: cooperative ICD10 Worksheet Patient Problems: Problems Problem Status Onset Acute gastroenteritis Acute Atrial fibrillation with RVR Acute Facial contusion Acute Facial fracture Acute Hypertension Chronic
--- NOTE | 2018-02-16 07:24 | GDS ---
[f rep st] DISCHARGE SUMMARY DISCHARGE DIAGNOSIS: Watchman placement. HOSPITAL COURSE: Briefly, this is an 83-year-old female with a history of elevated CHADS-VASc score, paroxysmal atrial fibrillation, inability to tolerate long-term anticoagulation therapy secondary to GI bleeding, who was admitted electively for Watchman placement. The patient underwent successful W atchman placement on 02/15/2018. Postprocedure, the patient has done well. She will have her suture in her groin removed this morning. She will remain on anticoagulant therapy for at least 45 days un til her followup SAIMA. She will follow up with me in the office in 1 week's time. /[id number]/MODL
[2018-02-16 07:28] VITALS: BP 152/88
[2018-02-16] MEDS: APIXABAN 2.5 MG TAB PO SCH (08:07)
[2018-02-16] MEDS ORDERED: CHOLECALCIFEROL VIT D3 1,000 UNITS TAB PO SCH (09:00)
[2018-02-16] MEDS ORDERED: CETIRIZINE 10 MG TAB PO PRN (09:00)
[2018-02-16] MEDS ORDERED: CYANO/VITAMIN B12 1000 MCG TAB PO SCH (09:00)
[2018-02-16] MEDS ORDERED: DILTIAZEM CD 180 MG CAP PO SCH (09:00)
[2018-02-16] MEDS ORDERED: Herbals/Supplements -Info Only PO SCH (09:00)
--- NOTE | 2018-02-16 09:00 | CPEKG ---
Heart Rate: 84 RR Interval: 714 P-R Interval: 160 QRSD Interval: 92 QT Interval: 376 QTC Interval: 445 P [place]: 64 QRS [place]: 38 T Wave [place]: 78 EKG Severity - BORDERLINE ECG - EKG Impression: SINUS RHYTHM EKG Impression: PROBABLE LEFT ATRIAL ABNORMALITY Electronically Signed By: Kelley Ivy 16-Feb-2018 11:55:15
--- NOTE | 2018-02-16 09:29 | ASMTCMCOM ---
CM Note CM Note Notes: Chart reviewed. 83 year old female s/p watchman procedure. Per die presser medically clear for discharge to home. No needs identified. CM available should needs arise. Plan: DC to home with family support. Date Signed: 02/16/2018 09:28 AM Electronically Signed By:Liz Roldan RN
--- NOTE | 2018-02-16 09:36 | ASDISCHSUM ---
Discharge Information Plan Status:Home with No Needs Medically Cleared to Leave:02/16/2018 Discharge Date:02/16/2018 09:30 AM CM D/C Disposition:Home, Routine, Self-Care ADT D/C Disposition:Home, Routine, Self-Care Projected Discharge Date:02/16/2018 09:30 AM Transportation at D/C:Family Discharge Delay Reason: Follow-Up Date:02/16/2018 09:30 AM Discharge Slot: Final Diagnosis: Placement Information Patient Contact Information Contact Name:DONNELL Relationship: Address:[address] [place] [address] City:[place] Alternate Phone: [facility]/Zip Code:[place] [address] Email: Financial Information Financial Class:Medicare Primary Plan Desc:MEDICARE INPATIENT Primary Plan Number:[id number] Secondary Plan Desc:[facility] Secondary Plan Number:[id number] Assessment Information LACE LACE Length of stay for Answers: Less than 1 day current admission Acuity / Level of Answers: Yes Care: Did the patient have an inpatient admission? Comorbidities - select Answers: Cerebrovascular disease all that apply (CVA, TIA, aneurysms, vasc ular dementia) Other Notes: HTN; AFib # of Emergency department Answers: 1-2 visits in the last 6 months Score: 6 Date Signed: 02/16/2018 09:33 AM Electronically Signed By:Liz Roldan RN [facility] CM Progress Note CM Note CM Note Notes: Chart reviewed. 83 year old female s/p watchman procedure. Per solar consultant medically clear for discharge to home. No needs identified. CM available should needs arise. Plan: DC to home with family support. Date Signed: 02/16/2018 09:28 AM Electronically Signed By:Liz Roldan RN Intervention Information
== END 2018-02-16 09:30 | disposition home or self-care (01) | DRG 274 ==
LOC: FCATH 07:35 → F2W 11:05
PROVIDERS: ADMIT Internal Medicine Cardiovascular Disease; ATTEND Internal Medicine Cardiovascular Disease
PROC: 02L73DK Occlusion of Left Atrial Appendage with Intraluminal Device, Percutaneous Approach (ICD-10-PCS; principal; 2018-02-15)
DX: I48.0 Paroxysmal atrial fibrillation (principal); Z00.6 Encounter for examination for normal comparison and control in clinical research program; Z79.01 Long term (current) use of anticoagulants; I10 Essential (primary) hypertension; Z86.73 Personal history of transient ischemic attack (TIA), and cerebral infarction without residual deficits; J45.909 Unspecified asthma, uncomplicated
CPT/HCPCS: C1769; C1893; J0690; J1644; J2370; J2704; J2720; J3010; Q9967

== ENCOUNTER 2018-04-13 09:44 | Day surgery (SDC) | payer OTHER ==
[2018-04-13] MEDS ORDERED: NS 500 ML IV ONE (09:48)
[2018-04-13] MEDS ORDERED: MIDAZOLAM 2 MG/2 ML VIAL IVP ONE (09:48)
[2018-04-13] MEDS ORDERED: fentaNYL 100 MCG/2 ML INJ IVP ONE (09:48)
[2018-04-13] MEDS ORDERED: BENZOCAINE UNIT DOSE SPRAY HURRICAINE MM ONE (09:48)
--- NOTE | 2018-04-13 10:40 | PDANEPAE ---
ANE History of Present Illness 83 yo for aaron s/p watchman ANE Past Medical History - Cardiovascular History Hx Hypertension: Yes Hx Arrhythmias: Yes Hx Chest Pain: No Hx Palpitations: Yes Cardiovascular History Comment: History of paroxysmal A.Fib; prior episodes of A. Fib w/ RVR - Pulmonary History Hx COPD: No Hx Asthma/Reactive Airway Disease: Yes Hx Recent Upper Respiratory Infection: No Hx Oxygen in Use at Home: No Hx Sleep Apnea: No - Neurologic History Hx Cerebrovascular Accident: Yes Hx Seizures: No Hx Dementia: No Neurologic History Comment: History of Lacunar infarct in 2012. Patient states she has left foot drag with she becomes fatigued. - Endocrine History Hx Diabetes: No - Renal History Hx Renal Disorders: No - Liver History Hx Hepatic Disorders: No - Neurological & Psychiatric Hx Hx Neurological and Psychiatric Disorders: No - Cancer History Hx Cancer: No - Congenital Disorder History Hx Congenital Disorders: No - GI History Hx Gastrointestinal Disorders: No - Chronic Pain History Chronic Pain: No ANE Review of Systems Review of Systems: - Exercise capacity METS (RN): 3 METS ANE Patient History - Allergies Allergies/Adverse Reactions: amlodipine [From Norvasc] Allergy (Verified 10/25/17 14:02) light headedness atorvastatin calcium [From Lipitor] Allergy (Verified 10/25/17 14:02) muscle weakness nebivolol [From Bystolic] Allergy (Verified 10/25/17 14:02) fatigue pitavastatin Allergy (Verified 10/25/17 14:02) muscle weakness pravastatin Allergy (Verified 10/25/17 14:02) muscle weakness rosuvastatin [From Crestor] Allergy (Verified 10/25/17 14:02) musle weakness - Home Medications Home Medications: Albuterol [Proventil Inhaler HFA (*)] 1 - 2 puffs IH Q6HRS PRN 09/27/13 [Last Taken 07/23/17 21:00] Diltiazem HCl [Diltiazem 24Hr Cd] 180 mg PO DAILY 04/04/16 [Last Taken 04/13/18 05:00] Fluticasone Hfa 220 Mcg [Flovent 220 MCG Hfa MDI (*)] 1 inh IH BID 04/04/16 [ Last Taken 04/12/18 20:00] Alendronate Sodium [Fosamax 70 MG (*)] 70 mg PO TU@0700 07/24/17 [Last Taken 08:00] Loratadine 10 mg PO DAILY PRN 07/24/17 [Last Taken 04/12/18 08:00] ALPRAZolam [Xanax 0.25 MG (*)] 0.125 mg PO HS PRN 10/25/17 [Last Taken Unknown] Cholecalciferol Vit D3 [Vitamin D3 (*)] 1,000 units PO DAILY 10/25/17 [Last Taken 04/12/18 08:00] Cyanocobalamin (Vitamin B-12) [B-12] 1,000 mcg PO DAILY 10/25/17 [Last Taken 08:00] Herbals/Supplements -Info Only 1 ea PO DAILY 10/25/17 [Last Taken 04/12/18 08:00 ] Estradiol [Yuvafem] 10 mcg VG TU@02/11/18 [Last Taken 04/12/18 20:00] Fluticasone Nasal [Flonase Nasal [place]] 1 sprays NASAL DAILY PRN 02/11/18 [Last Taken 04/12/18 20:00] Naproxen Sodium [Aleve 220 MG (*)] 220 mg PO HS PRN 02/11/18 [Last Taken Unknown ] - Smoking Hx Smoking Status: Never smoked ANE Labs/Vital Signs - Vital Signs Height: 4 ft 11.84 in Weight: 52.2 kg ANE Physical Exam - Airway Neck exam: FROM Mallampati Score: Class 2 Mouth exam: normal dental/mouth exam - Pulmonary Pulmonary: no respiratory distress - Cardiovascular Cardiovascular: regular rate and rhythym - ASA Status ASA Status: III ANE Anesthesia Plan Anesthesia Plan: GA with mask
[2018-04-13] MEDS ORDERED: PROPOFOL 200 MG/20 ML VIAL ONE (10:50)
--- NOTE | 2018-04-13 11:04 | PDGENHP ---
History & Physical Chief Complaint: post Watchman History of Present Illness: 83 yo M s/p Watchman approximately 45 days ago. Now post procedure device evaluation Pertinent Past, Social, Family History: reviewed Cardiorespiratory Assessment: per anesthesia
[2018-04-13] MEDS ORDERED: ENALAPRILAT DIHYDRATE 1.25 MG/ML VIAL ONE (11:27)
--- NOTE | 2018-04-15 11:13 | ECHO ---
[email or web address] [address] Main: [phone] Fax: Transesophageal Echocardiography Name: ROQUE DUMONT MR#: [id number] Study Date: 04/13/2018 Study Time: 10:34 AM Date of : 1935 Age: 83 year(s) Height: ( ) Weight: ( ) BSA: Gender: Female Examination: SAIMA Indication: Post Watchman Image Quality: Contrast: Requested by: Hayder Johnston Heart Rate: Rhythm: BP: 164 mmHg/81 mmHg Procedure Staff Personal Lines Appraiser: Christopher Rene RDCS Reading Physician: Katie Kaiser MD Requesting Provider: Sancho Simpson SAIMA Exam Details Conclusions: Normal global systolic LV function. There is a Watchman device in the left atrial appendage. The device is well seated. There is thrombus behind the device in the left atrial appendage which is an expected finding. There is a very small color jet seen on the limbus side of the device that measures 0.2 cm. This is only seen at the 90 degree view. There is no thrombus on the face of the device.. Moderate mitral valve regurgitation is present. No pericardial effusion. Measurements: Chambers Valvular Assessment AV/MV Valvular Assessment TV/PV Normal Normal Normal Name Value Range Name Value Range Name Value Range Additional Measurements: Findings: Left Ventricle: Normal global systolic LV function. No regional wall motion abnormality. Left Atrial Appendage: There is a Watchman device in the left atrial appendage. The device is well seated. There is thrombus behind the device in the left atrial appendage which is an expected finding. There is a very small color jet seen on the limbus side of the device that measures 0.2 cm. This is only seen at the 90 degree view. There is no thrombus on the face of the device.. Patient: ROQUE DUMONT Study Date: 04/13/2018 Page 1 of 2 10:34 AM Mitral Valve: The mitral valve is normal in appearance. Moderate mitral valve regurgitation is present. Aortic Valve: Mild aortic cusp calcification is noted. There is no significant aortic valve regurgitation. No aortic valve stenosis is present. Tricuspid Valve: The tricuspid valve is normal in appearance and function. Pulmonic Valve: The pulmonic valve is normal in appearance and function. Aorta: The aorta is normal. Pericardium: No pericardial effusion. Exam Comments: . l1n (No Signature Object) Patient: ROQUE DUMONT Study Date: 04/13/2018 Page 2 of 2 10:34 AM [id number]
== END 2018-04-13 12:58 | disposition home or self-care (01) ==
LOC: FCATH 09:44
PROVIDERS: ATTEND Internal Medicine Cardiovascular Disease
PROC: B246ZZ4 Ultrasonography of Right and Left Heart, Transesophageal (ICD-10-PCS; principal; 2018-04-13)
DX: Z48.812 Encounter for surgical aftercare following surgery on the circulatory system (principal); I34.0 Nonrheumatic mitral (valve) insufficiency
CPT/HCPCS: J2704

== ENCOUNTER 2018-06-18 16:10 | Emergency (ER) | payer OTHER ==
[2018-06-18 16:56] LABS: PLATELET COUNT 319 10^3/uL (150-400)
--- NOTE | 2018-06-18 17:05 | EDPHY ---
H & P Stated Complaint: tachycardia Time Seen by Provider: 06/18/18 16:23 HPI/ROS: CHIEF COMPLAINT: Rapid heart rate HISTORY OF PRESENT ILLNESS: 83-year-old female with paroxysmal atrial fibrillation and asthma presents with rapid heart rate. Onset sore throat, runny nose and cough 4 days ago. She went to her primary care physician's office this afternoon for the URI and was found to be in atrial fibrillation with RVR. She was sent here for further evaluation. In regards to the upper respiratory infection, she has a mild cough, no fever and no shortness of breath. Multiple family members ill recently. Takes ASA daily. REVIEW OF SYSTEMS: complete 10 point ROS reviewed and is negative except for the noted elements in the HPI - Personal History Current Tetanus/Diphtheria Vaccine: Yes Current Tetanus Diphtheria and Acellular Pertussis (TDAP): Yes Tetanus Vaccine Date: 2006 - Medical/Surgical History Hx Asthma: Yes Hx Chronic Respiratory Disease: No Hx Diabetes: No Hx Cardiac Disease: Yes Hx Renal Disease: No Hx Cirrhosis: No Hx Alcoholism: No Hx HIV/AIDS: No Hx Splenectomy or Spleen Trauma: No Other PMH: HX: ASTHMA, MILD ALLERGIC RHINITIS, GLASSES, HTN, EAR INFECTIONS WITH MILD HEARING LOSS, TONSILLECTOMY, MISCARRIAGES, POLYHYDRAMNIOS WITH , HYSTERECTOMY, B SUBCUTANEOUS MASTECTOMIES, FIBROCYSTIC. DISEASE, ELBOW FX, ROTATOR CUFF TEARS AND REPAIRS, CATARACTS SURGERY, STROKE NOVEMBER 2012, afib - Social History Smoking Status: Never smoked Alcohol Use: Sober Drug Use: None Additional Social History: , is a retired car runner PCP: Dr. Houston - Physical Exam Exam: General Appearance: Alert, pleasant, nontoxic Eyes: Pupils equal and round, no conjunctival pallor or injection ENT, Mouth: Mucous membranes moist Neck: Normal inspection Respiratory: Lungs are clear to auscultation Cardiovascular: Regular tachycardia, heart rate 100 Gastrointestinal: Abdomen is soft and nontender Neurological: A&O, nonfocal, normal gait Skin: Warm and dry, no rash Extremities: Nontender, no pedal edema Psychiatric: Mood and affect normal Constitutional: Initial Vital Signs Temperature (C) 36.8 C 06/18/18 16:18 Heart Rate 163 H 06/18/18 16:18 Respiratory Rate 16 06/18/18 16:18 Blood Pressure 148/101 H 06/18/18 16:18 O2 Sat (%) 93 06/18/18 16:18 O2 Delivery Mode Room Air O2 (L/minute) 2 Allergies/Adverse Reactions: amlodipine [From Norvasc] Allergy (Verified 06/19/18 11:38) light headedness atorvastatin calcium [From Lipitor] Allergy (Verified 06/19/18 11:38) muscle weakness nebivolol [From Bystolic] Allergy (Verified 06/19/18 11:38) fatigue pitavastatin Allergy (Verified 06/19/18 11:38) muscle weakness pravastatin Allergy (Verified 06/19/18 11:38) muscle weakness rosuvastatin [From Crestor] Allergy (Verified 06/19/18 11:38) musle weakness Home Medications: Medication Instructions Recorded Albuterol [Proventil Inhaler HFA 1 - 2 puffs IH Q6HRS PRN 09/27/13 (*)] Diltiazem HCl [Diltiazem 24Hr Cd] 180 mg PO DAILY 04/04/16 Fluticasone Hfa 220 Mcg [Flovent 1 inh IH BID 04/04/16 220 MCG Hfa MDI (*)] Alendronate Sodium [Fosamax 70 MG 70 mg PO TU@0700 07/24/17 (*)] Loratadine 10 mg PO DAILY PRN 07/24/17 ALPRAZolam [Xanax 0.25 MG (*)] 0.125 mg PO HS PRN 10/25/17 Cholecalciferol Vit D3 [Vitamin D3 1,000 units PO DAILY 10/25/17 (*)] Cyanocobalamin (Vitamin B-12) 1,000 mcg PO DAILY 10/25/17 [B-12] Estradiol [Yuvafem] 10 mcg VG TU@07 02/11/18 Naproxen Sodium [Aleve 220 MG (*)] 220 mg PO HS PRN 02/11/18 Doxycycline Hyclate 100 mg PO BID #20 tablet 06/18/18 Aspirin EC [Aspirin EC 81 mg (*)] 81 mg PO DAILY 06/19/18 Multivitamins [Multivitamin (*)] 1 each PO DAILY 06/19/18 Medical Decision Making - Diagnostics EKG Interpretation: EKG interpreted by me reveals atrial fibrillation, ventricular rate 149, no ST or T segment changes. Interpretation abnormal EKG Repeat EKG interpreted by me reveals sinus tachycardia, rate 100, no ST or T segment changes, PAC. Interpretation: Abnormal EKG Imaging Results: CXR: BHASKAR infiltrate Imaging: I viewed and interpreted images myself ED Course/Re-evaluation: This patient presents in atrial fibrillation with RVR. She spontaneously converted to normal sinus rhythm prior to my evaluation. Repeat EKG reveals sinus tachycardia with no evidence of ischemia. She is nontoxic-appearing and lung exam is normal. However, she has significant leukocytosis of 21,000, so chest x-ray ordered. Chest x-ray reveals a left upper lobe infiltrate, consistent with pneumonia. Results discussed with the patient and her . Admission advised, but patient refuses. She is a competent decision maker and clearly understands the risks and benefits of this decision. Will return for worsening symptoms or any concerns. Options for abx discussed, agrees to Doxy. Prescription for doxycycline written. f/u with PCP on Thursday, return for worsening sx, any concerns. Pt remained in SR throughout remainder of ED course. Differential Diagnosis: includes though not limited to PE, PTX, ACS, dissection, hypotension - Data Points Laboratory Results: Laboratory Results 06/18/18 16:30 06/18/18 16:30 Medications Given: Discontinued Medications Doxycycline Hyclate (Vibramycin 100 Mg Prepack#2) 1 btl TAKEHOME EDNOW ONE Stop: 06/18/18 17:56 Last Admin: 06/18/18 18:00 Dose: 1 btl Doxycycline Hyclate (Doxycycline Hyclate) 100 mg PO EDNOW ONE PRN Reason: Protocol Stop: 06/18/18 17:56 Last Admin: 06/18/18 18:00 Dose: 100 mg Point of Care Test Results: Chemistry 06/18/18 16:33 POC Troponin I 0.00 ng/mL ng/mL (0.00-0.08) Departure - Departure Disposition: Home, Routine, Self-Care Clinical Impression: Paroxysmal atrial fibrillation Pneumonia Qualifiers: Pneumonia type: due to unspecified organism Laterality: left Lung location: upper lobe of lung Qualified Code(s): J18.1 - Lobar pneumonia, unspecified organism Condition: Good Instructions: Doxycycline (By mouth), A-fib (Atrial Fibrillation) (ED), Bacterial Pneumonia (ED) Additional Instructions: You had atrial fibrillation with a rapid heart rate when you arrived to the emergency department. You have spontaneously converted to a normal heart rhythm. Referrals: Marlee Houston MD [Primary Care Provider] - 2-3 days without fail (Call to make an appointment.) Prescriptions: Doxycycline Hyclate 100 mg PO BID #20 tablet
[2018-06-18] MEDS ORDERED: DOXYCYCLINE HYCLATE 100 MG CAP/TAB PO ONE (17:55)
[2018-06-18] MEDS ORDERED: DOXYCYCLINE 100 MG PREPACK#2 BTL TAKEHOME ONE (17:55)
[2018-06-18 18:04] VITALS: BP 138/99
--- NOTE | 2018-06-18 23:09 | CPEKG ---
Test Reason : OPEN Blood Pressure : / mmHG Vent. Rate : 100 BPM Atrial Rate : 101 BPM P-R Int : 151 ms QRS Dur : 093 ms QT Int : 345 ms P-R-T Axes : 035 -01 063 degrees QTc Int : 445 ms Sinus tachycardia Atrial premature complexes Probable left atrial enlargement Inferior infarct, old Confirmed by Jen Nuno ([id number]) on 06/18/2018 11:09:03 PM Referred By: Confirmed By:Jen Nuno
--- NOTE | 2018-06-18 23:09 | CPEKG ---
Test Reason : OPEN Blood Pressure : / mmHG Vent. Rate : 149 BPM Atrial Rate : 191 BPM P-R Int : 090 ms QRS Dur : 092 ms QT Int : 281 ms P-R-T Axes : 000 -11 065 degrees QTc Int : 443 ms Atrial fibrillation with rapid V-rate Confirmed by Jen Nuno ([id number]) on 06/18/2018 11:08:45 PM Referred By: Confirmed By:Jen Nuno
== END 2018-06-18 18:04 | disposition home or self-care (01) ==
DX: I48.0 Paroxysmal atrial fibrillation (principal); J18.9 Pneumonia, unspecified organism; J45.909 Unspecified asthma, uncomplicated; I10 Essential (primary) hypertension; Z79.82 Long term (current) use of aspirin; Z86.73 Personal history of transient ischemic attack (TIA), and cerebral infarction without residual deficits
CPT/HCPCS: 84484-PO

== ENCOUNTER 2018-06-19 11:34 | Inpatient (IN) | payer OTHER ==
[2018-06-19] MEDS ORDERED: NS 1,000 ML IV ONE (12:33)
[2018-06-19] MEDS ORDERED: AZITHROMYCIN IV 500 MG in D5W 250 ML IV ONE (12:33)
--- NOTE | 2018-06-19 12:34 | EDPHY ---
H & P Time Seen by Provider: 06/19/18 12:06 HPI/ROS: CHIEF COMPLAINT: Rapid heart rate and short of breath HISTORY OF PRESENT ILLNESS: Patient was seen in the emergency department yesterday and diagnosed with left upper lobe pneumonia and atrial fibrillation, converted spontaneously. According to the chart admission was recommended but she went to go home was discharged on doxycycline. The patient did wake up this morning feeling short of breath, with her oxygen saturation in the high 80s. She use albuterol x2 around 9:30 a.m. And then felt her heart rate start racing, tachycardic with palpitations, symptoms moderate to severe. Also of note she has not been drinking very much oral fluids, feels thirsty and dehydrated. Since she got sick she feels like she just can't eat or drink that much. Rapid heart rate when I see her is better. Not associated with chest pain or syncope. REVIEW OF SYSTEMS: Eye: no change in vision ENT: no sore throat Cardiac: HPI Pulmonary: HPI Abdomen: no vomiting, diarrhea, abdominal pain Musculoskeletal: no back pain Skin: no rash Neuro: no headache Constitutional: no fever : no urinary symptoms A comprehensive 10 point review of systems is otherwise negative aside from elements mentioned in the history of present illness. PAST MEDICAL HISTORY: Includes asthma, hypertension, hysterectomy, mastectomies. Multiple orthopedic surgery and cataract surgery, atrial fibrillation, stroke in November of 2012. Social history: Here with her General Appearance: Alert and conversant, cooperative. Eyes: No scleral icterus. ENT, Mouth: Dry mucous membranes. Respiratory: Decreased breath sounds bilaterally. Cardiovascular: Regular rate and rhythm. Gastrointestinal: Abdomen is soft and non tender. Neurological: Alert, face symmetric, normal motor and sensory in extremities. Skin: Warm and dry, no rashes. Musculoskeletal: No peripheral edema. Psychiatric: Patient has some moderate anxiety. Emergency Department course/MDM: Patient was diagnosed yesterday with pneumonia is currently on doxycycline. She arrives today with hypoxia documented this morning at home with oxygen saturations in the high 80s, rapid heart rate likely atrial fibrillation after using albuterol with rate at triage in the 150s, clinically dehydrated. Not a new diagnosis of pneumonia, chest x-ray performed yesterday. Sinus rhythm in the emergency department, likely had atrial fibrillation at triage spontaneously converted. Patient wants to go home, I recommended she be admitted, she eventually agreed. Reason is failure of outpatient treatment with documented hypoxemia this morning, multiple medical comorbidities, high risk for repeat atrial fibrillation or flutter using bronchodilators. Does not want repeat imaging, or further diagnostics such as sepsis screening or blood cultures, has agreed to treatment with IV antibiotics and supportive care and admission to hospitalist service. 1124: Abdirahman for Todd Gonzalez. Smoking Status: Never smoked Constitutional: Initial Vital Signs Temperature (C) 36.6 C 06/19/18 11:39 Heart Rate 155 H 06/19/18 11:39 Respiratory Rate 20 06/19/18 11:39 Blood Pressure 146/87 H 06/19/18 11:39 O2 Sat (%) 94 06/19/18 11:39 O2 Delivery Mode Room Air Allergies/Adverse Reactions: amlodipine [From Norvasc] Allergy (Verified 06/19/18 11:38) light headedness atorvastatin calcium [From Lipitor] Allergy (Verified 06/19/18 11:38) muscle weakness nebivolol [From Bystolic] Allergy (Verified 06/19/18 11:38) fatigue pitavastatin Allergy (Verified 06/19/18 11:38) muscle weakness pravastatin Allergy (Verified 06/19/18 11:38) muscle weakness rosuvastatin [From Crestor] Allergy (Verified 06/19/18 11:38) musle weakness Home Medications: Medication Instructions Recorded Albuterol [Proventil Inhaler HFA 1 - 2 puffs IH Q6HRS PRN 09/27/13 (*)] Diltiazem HCl [Diltiazem 24Hr Cd] 180 mg PO DAILY 04/04/16 Fluticasone Hfa 220 Mcg [Flovent 1 inh IH BID 04/04/16 220 MCG Hfa MDI (*)] Alendronate Sodium [Fosamax 70 MG 70 mg PO TU@0700 07/24/17 (*)] Loratadine 10 mg PO DAILY PRN 07/24/17 ALPRAZolam [Xanax 0.25 MG (*)] 0.125 mg PO HS PRN 10/25/17 Cholecalciferol Vit D3 [Vitamin D3 1,000 units PO DAILY 10/25/17 (*)] Cyanocobalamin (Vitamin B-12) 1,000 mcg PO DAILY 10/25/17 [B-12] Estradiol [Yuvafem] 10 mcg VG TU@07 02/11/18 Naproxen Sodium [Aleve 220 MG (*)] 220 mg PO HS PRN 02/11/18 Doxycycline Hyclate 100 mg PO BID #20 tablet 06/18/18 Aspirin EC [Aspirin EC 81 mg (*)] 81 mg PO DAILY 06/19/18 Multivitamins [Multivitamin (*)] 1 each PO DAILY 06/19/18 Medical Decision Making - Diagnostics EKG Interpretation: 12-lead EKG interpreted by me; official reading is in computer system. My interpretation is sinus tachycardia rate 105 with APC and old inferior TX. - Data Points Laboratory Results: Laboratory Results 06/19/18 11:55 06/19/18 11:55 06/19/18 06/19/18 11:55 11:55 WBC 16.70 10^3/uL H 10^3/uL (3.80-9.50) RBC 4.74 10^6/uL 10^6/uL (4.18-5.33) Hgb 14.2 g/dL g/dL (12.6-16.3) Hct 41.3 % % (38.0-47.0) MCV 87.1 fL fL (81.5-99.8) MCH 30.0 pg pg (27.9-34.1) MCHC 34.4 g/dL g/dL (32.4-36.7) RDW 14.4 % % (11.5-15.2) Plt Count 309 10^3/uL 10^3/uL (150-400) MPV 10.4 fL fL (8.7-11.7) Neut % (Auto) 74.6 % H % (39.3-74.2) Lymph % (Auto) 13.7 % L % (15.0-45.0) [place]ley % (Auto) 8.1 % % (4.5-13.0) Eos % (Auto) 1.7 % % (0.6-7.6) Baso % (Auto) 0.5 % % (0.3-1.7) Nucleat RBC Rel Count 0.0 % % (0.0-0.2) Absolute Neuts (auto) 12.45 10^3/uL H 10^3/uL (1.70-6.50) Absolute Lymphs (auto) 2.29 10^3/uL 10^3/uL (1.00-3.00) Absolute Monos (auto) 1.36 10^3/uL H 10^3/uL (0.30-0.80) Absolute Eos (auto) 0.28 10^3/uL 10^3/uL (0.03-0.40) Absolute Basos (auto) 0.08 10^3/uL 10^3/uL (0.02-0.10) Absolute Nucleated RBC 0.00 10^3/uL 10^3/uL (0-0.01) Immature Gran % 1.4 % H % (0.0-1.1) Immature Gran # 0.24 10^3/uL H 10^3/uL (0.00-0.10) Sodium 141 mEq/L mEq/L (135-145) Potassium 3.4 mEq/L mEq/L (3.3-5.0) Chloride 106 mEq/L mEq/L (97-110) Carbon Dioxide 23 mEq/l mEq/l (22-31) Anion Gap 12 mEq/L mEq/L (6-14) BUN 17 mg/dL mg/dL (7-23) Creatinine 0.8 mg/dL mg/dL (0.6-1.0) Estimated GFR > 60 Glucose 121 mg/dL H mg/dL (70-100) Calcium 9.2 mg/dL mg/dL (8.5-10.4) Medications Given: Discontinued Medications Azithromycin 500 mg/ Dextrose 255 mls @ 255 mls/hr IV EDNOW ONE PRN Reason: Protocol Stop: 06/19/18 13:32 Last Admin: 06/19/18 13:41 Dose: 255 mls Ceftriaxone Sodium/Dextrose (Rocephin 1 Gm (Premix)) 50 mls @ 100 mls/hr IV EDNOW ONE PRN Reason: Protocol Stop: 06/19/18 13:02 Last Admin: 06/19/18 12:44 Dose: 50 mls Sodium Chloride (Ns) 1,000 mls @ 0 mls/hr IV ONCE ONE; Wide Open PRN Reason: Protocol Stop: 06/19/18 12:34 Last Admin: 06/19/18 12:45 Dose: 1,000 mls Departure - Departure Disposition: [facility] Acute Clinical Impression: Dehydration Pneumonia Qualifiers: Pneumonia type: due to unspecified organism Laterality: left Lung location: upper lobe of lung Qualified Code(s): J18.1 - Lobar pneumonia, unspecified organism Condition: Good
[2018-06-19 12:38] LABS: PLATELET COUNT 309 10^3/uL (150-400)
--- NOTE | 2018-06-19 13:07 | CPEKG ---
Test Reason : OPEN Blood Pressure : / mmHG Vent. Rate : 105 BPM Atrial Rate : 105 BPM P-R Int : 151 ms QRS Dur : 096 ms QT Int : 345 ms P-R-T Axes : 045 -06 059 degrees QTc Int : 457 ms Sinus tachycardia Atrial premature complex Probable left atrial enlargement Inferior infarct, old Confirmed by Jack Mack ([id number]) on 06/19/2018 1:06:16 PM Referred By: Confirmed By:Jack Mack
[2018-06-19] MEDS ORDERED: ONDANSETRON DISINTEGRATING 4 MG TAB PO PRN (15:32)
[2018-06-19] MEDS ORDERED: ACETAMINOPHEN 325 MG TAB PO PRN (15:32)
[2018-06-19] MEDS: predniSONE 20 MG TAB PO SCH (16:20)
--- NOTE | 2018-06-19 16:50 | GHP ---
DATE OF ADMISSION: 06/19/2018 CHIEF COMPLAINT: Shortness of breath, tachycardia. HISTORY OF PRESENT ILLNESS: The patient is an 83-year-old with a history significant for atrial fibr illation and asthma. She comes in with increasing hypoxia and shortness of breath. She says she breana hernadez got sick last Thursday with a sore throat. She started to feel better. However, over the week, she got worse and worse. She went to see her primary care provider yesterday and at which time, she was quite tachycardic, so she was sent directly to the emergency department. There, they did a ches t x-ray, which showed a patchy consolidation in the left upper lobe, atrial fibrillation, and a leuko cytosis. They recommended she stay in the hospital for observation. However, she declined and went home. This morning, when she woke up, her heart rate was still high and her oxygen level was low at 83, so she came back to the emergency department. She does have a history of reactive airways disease and h as been on prednisone in the past when she needed antibiotics. She has been using quite a bit of her albuterol inhaler at home due to shortness of breath that does help her shortness of breath. Howeve r, it makes her more tachycardic. She has not had fevers or chills. She does have shortness of angelic th. She has some discomfort in the left upper chest. No nausea, vomiting. No diarrhea. No lower e xtremity edema. No other significant symptoms. REVIEW OF SYMPTOMS: A 10-point review of systems was done and is negative except as stated in the HP I. PAST MEDICAL HISTORY: 1. Atrial fibrillation, status post Watchman, currently off anticoagulation and only on aspirin. 2. Reactive airways disease on steroid inhaler and albuterol. 3. Hypertension. 4. Dyslipidemia. 5. History of CVA remotely with a small lacunar infarct in November of 2012. FAMILY HISTORY: Father with sudden cardiac at age 76. Mother with OK and younger sibling with an OK. SOCIAL HISTORY: She is . Her and her have been for 52 years. They currently live at [facility]. She is physically active. Goes to the gym quite freque ntly. There is no tobacco use and no alcohol use. CURRENT MEDICATIONS: Please see med reconciliation form. ALLERGIES: Include amlodipine, atorvastatin, Bystolic, pitavastatin, pravastatin, and rosuvastatin. PHYSICAL EXAMINATION: VITAL SIGNS: She is afebrile. Heart rate is 150/80, respirations 16. She is 92% on room air currently, respirations are 16. GENERAL: She is an elderly woman. She is in some mild respiratory distress. She is alert. HEENT: Pupils are equal. Extraocular movements intact. Mucous membranes moist. Oropharynx clear. NECK: Supple. No adenopathy. HEART: Regular with a sy stolic murmur. LUNGS: Diminished bilaterally. No obvious wheezing. She does have slight crackles intermittently in her left upper lobe. ABDOMEN: Soft, nontender, nondistended. Bladder slightly di stended. She needs to go to the bathroom. BACK: Unremarkable. EXTREMITIES: No significant clubbi ng, cyanosis, or edema. MUSCULOSKELETAL: No joint deformities or effusions. NEUROLOGIC: She is al ert and oriented. Her speech is fluent. She moves all 4 extremities. Gait is normal for age. PSYC HIATRIC: Normal mood and affect. LABORATORY DATA: CBC shows a white count of 16.7, hemoglobin 14.2 with a platelet count of 309. Marni mistries are unremarkable. Chest x-ray shows a left lung consolidation suggesting pneumonia. Electrocardiogram was personally reviewed and interpreted, shows sinus rhythm, mild tachycardia, and a PAC. ASSESSMENT AND PLAN: An 83-year-old woman with a history of reactive airways disease and atrial fibr illation is admitted with tachycardia, hypoxia, and was found to have evidence of pneumonia on her est x-ray. 1. Community-acquired pneumonia complicated by reactive airways disease in exacerbation. Plan: Sta rt her on ceftriaxone IV. Continue her doxycycline. We will have her take prednisone and Xopenex in halers. Follow her clinically. She does have a mild sepsis presenting with leukocytosis and tachyca rdia. 2. Atrial fibrillation, status post Watchman procedure. She is currently off anticoagulation and on aspirin daily. She takes for rate control. We will monitor her. 3. Hypertension, stable. 4. Dyslipidemia, currently diet controlled. She is intolerant to most statins. 5. History of a lacunar cerebrovascular accident. 6. Code status. Patient would like to be a Do Not Resuscitate. 7. Deep vein thrombosis prophylaxis. We will start her on low-molecular weight heparin. /[id number]/MODL
[2018-06-19] MEDS: FLUTICASONE HFA 220 MCG MDI IH SCH (20:44)
[2018-06-19] MEDS: DOXYCYCLINE HYCLATE 100 MG CAP/TAB PO SCH (21:12)
[2018-06-20] MEDS: LEVALBUTEROL 0.63 MG/3 ML DEYVIAL IH PRN ×2 (04:04→11:49)
[2018-06-20 04:48] LABS: PLATELET COUNT 302 10^3/uL (150-400)
[2018-06-20] MEDS: CHOLECALCIFEROL VIT D3 1,000 UNITS TAB PO SCH (08:25)
[2018-06-20] MEDS: DILTIAZEM CD 180 MG CAP PO SCH (08:25)
[2018-06-20] MEDS: ENOXAPARIN 40 MG/0.4 ML SYR SC SCH (08:25)
[2018-06-20] MEDS: MULTIVITAMINS 1 EACH TAB PO SCH (08:25)
[2018-06-20] MEDS: ASPIRIN EC 81 MG TAB PO SCH (08:25)
[2018-06-20] MEDS: FLUTICASONE HFA 220 MCG MDI IH SCH ×2 (08:26→20:44)
[2018-06-20] MEDS: CYANO/VITAMIN B12 1000 MCG TAB PO SCH (08:26)
[2018-06-20] MEDS: DOXYCYCLINE HYCLATE 100 MG CAP/TAB PO SCH ×2 (08:26→20:44)
[2018-06-20] MEDS: predniSONE 20 MG TAB PO SCH (08:26)
[2018-06-20] MEDS ORDERED: CETIRIZINE 10 MG TAB PO PRN (09:00)
--- NOTE | 2018-06-20 14:37 | HOSPPROG ---
Hospitalist Progress Note Assessment/Plan: 83-year-old with a history of paroxysmal AFib status post watch man presents with pneumonia and intermittent AFib. Overnight she feels better from a pneumonia standpoint however she has converted into rapid AFib is currently between 140-150 and symptomatic. # left upper lobe pneumonia likely community acquired continue ceftriaxone and doxycycline. * Follow-up symptoms * Transition oral antibiotics on discharge # acute asthma exacerbation secondary to above with hypoxic respiratory failure. Patient tried with Xopenex nebulizers however these did cause rapid AFib * Continues prednisone * Follow respiratory status, has improved # paroxysmal atrial fibrillation. Status post Watchman procedure currently on aspirin alone and diltiazem for rate control. * Diltiazem drip for better rate control once her rate is better controlled we can convert to an oral dose * Currently on 180 daily she may need to take this twice daily, she does have a follow-up scheduled with Dr. Kaiser a week from Thursday * No anticoagulation required due to her atrial plug # hypertension, follow # dyslipidemia on diet due to intolerance of statins Patient will need additional midnight stay due to ongoing asthma exacerbation and rapid atrial fibrillation requiring rate control with IV diltiazem. Subjective: Patient complains of feeling uncomfortable with rapid heart rate. Typically she is asymptomatic of her AFib however she does feel worse than usual at this time. She continues to get a lot of mucus production and cough. Objective: Vital Signs Temp Pulse Resp BP Pulse Ox 36.7 C 124 H 13 131/71 H 92 06/20/18 07:13 06/20/18 12:00 06/20/18 12:00 06/20/18 12:00 06/20/18 12:00 Laboratory Results 06/20/18 04:35 06/20/18 04:35 06/19/18 06/20/18 06/21/18 05:59 05:59 05:59 Intake Total 1450 Output Total 0 Balance 1450 - Physical Exam Constitutional: not in pain, uncomfortable Eyes: PERRL Ears, Nose, Mouth, Throat: moist mucous membranes Cardiovascular: irregularly irregular, tachycardia Respiratory: no respiratory distress, reduced air movement, No expiratory wheeze Gastrointestinal: normoactive bowel sounds, soft, non-tender abdomen Genitourinary: no bladder fullness Skin: warm, normal color Musculoskeletal: full muscle strength Neurologic: AAOx3 Psychiatric: interacting appropriately, not anxious ICD10 Worksheet Patient Problems: Problems Problem Status Onset Facial fracture Acute Facial contusion Acute Hypertension Chronic Acute gastroenteritis Acute Atrial fibrillation with RVR Acute Pneumonia Acute Dehydration Acute
[2018-06-20] MEDS ORDERED: DILTIAZEM 125 MG in D5W 125 ML IV SCH (14:45)
[2018-06-20] MEDS ORDERED: DILTIAZEM 30 MG TAB PO PRN (15:50)
--- NOTE | 2018-06-20 16:40 | PDMN ---
Medical Necessity Medical necessity: [facility] M505 Afib: 83 yo presents w/ hypoxia and sob. Intially OBS, dx w/ pneumonia and started on IV antibx. Overnight experienced intermittent afib which converted to rapid afib w/ HR 140-150 and symptomatic w / acute asthma exacerbation w/ hypoxic resp fx. Dilt drip started. Patient will need additional midnight stay due to ongoing asthma exacerbation and rapid atrial fibrillation requiring rate control with IV diltiazem. Hx afib, s/p TAVR , reactive airway disease, HTN, CVA. Change to IP status 06/20/18@5886 per MD order
--- NOTE | 2018-06-20 17:25 | ASMTCMCOM ---
CM Note CM Note Notes: Patient is 83 year old female, seen in [facility] ED on 06/18/18, diagnosed for left upper lobe pneumonia and atrial fibrillation, converted spontaneously, and discharged on doxycycline for pneumonia. She presented again with her with shortness of breath, O2 sat in high 80's. Patient admitted to continue treatment for pneumonia and dehydration. CM to follow. Current D/C Plan: Likely independent. Date Signed: 06/20/2018 05:24 PM Electronically Signed By:Marjan Crabtree
[2018-06-21] MEDS: FLUTICASONE HFA 220 MCG MDI IH SCH ×2 (09:09→20:05)
[2018-06-21] MEDS: ENOXAPARIN 40 MG/0.4 ML SYR SC SCH (10:18)
[2018-06-21] MEDS: ASPIRIN EC 81 MG TAB PO SCH (10:18)
[2018-06-21] MEDS: predniSONE 20 MG TAB PO SCH (10:18)
[2018-06-21] MEDS: DOXYCYCLINE HYCLATE 100 MG CAP/TAB PO SCH ×2 (10:19→20:05)
[2018-06-21] MEDS: CYANO/VITAMIN B12 1000 MCG TAB PO SCH (10:19)
[2018-06-21] MEDS: CHOLECALCIFEROL VIT D3 1,000 UNITS TAB PO SCH (10:19)
[2018-06-21] MEDS: MULTIVITAMINS 1 EACH TAB PO SCH (10:19)
[2018-06-21] MEDS: DILTIAZEM CD 180 MG CAP PO SCH (10:19)
--- NOTE | 2018-06-21 12:05 | ASMTCMCOM ---
CM Note CM Note Notes: CM met with pt and Francisco ([phone]). Both live independenlty in [facility] Living with no services. Pt and expressed concerns that after discharge pt would benefit from RN services because is leaving town for a for a couple days. CM spoke with Tiarra from [facility] and they do not provide skilled RN services. CM referred pt to [facility]. CM to follow. Plan: Raphael Lam with [facility] Date Signed: 06/21/2018 12:04 PM Electronically Signed By:SONI Orozco
--- NOTE | 2018-06-21 13:54 | HOSPPROG ---
Hospitalist Progress Note Assessment/Plan: 83 year old female with pmh of afib, COPD, admitted with CAP and COPD exacerbation along with Afib with RVR CAP- labs reviewed, and leukocytosis improved. No oxygen requirement, and exam with fair air movement. -continue rocephin/doxy -monitor cultures -transition to oral abx on discharge asthma/copd exacerbation- on prednisone and abx. not able to use any beta agonist inhalers as they cause afib with RVR. continue pred burst, flutter valve , flovent and RT. Might benefit from montelukast on discharge. Afib with RVR- ChadsVasc of at least 6, has Watchman device, on asa. Not able to use any beta agonist inhalers as they cause her to go into afib with RVR, which is concerning. on diltiazem 180 for rate control. would likely benefit from incresae in dose for better rate control if pressures tolerate it. Telemetry reviewed and rate had slowed to low 100s since last night but then back into 140s today. Has follow up with Cardiology in 1 week as follow up for watchman, but would like to see them if possible while here. Cardiology consulted who will see patient. HTN- on diltiazem 180qd. continue. Subjective: patient with better breathing overnight. No racing heart or chest pain. Will not use xopenex or albuterol due to afib with rvr. Objective: Vital Signs Temp Pulse Resp BP Pulse Ox 36.6 C 89 14 155/78 H 95 06/21/18 12:00 06/21/18 12:00 06/21/18 12:00 06/21/18 12:00 06/21/18 12:00 06/20/18 06/21/18 06/22/18 05:59 05:59 05:59 Intake Total 350 540 Balance 350 540 hysical Exam Constitutional: no apparent distress, appears nourished, not in pain Eyes: PERRL, anicteric sclera, EOMI Ears, Nose, Mouth, Throat: moist mucous membranes, hearing normal, ears appear normal, no oral mucosal ulcers Cardiovascular: bradycardia Respiratory: no respiratory distress, no rales or rhonchi, clear to auscultation Gastrointestinal: normoactive bowel sounds, soft, non-tender abdomen, no palpable masses Genitourinary: no bladder fullness, no bladder tenderness, no renal bruits Skin: no rashes or abrasions, no fluctuance, no induration Musculoskeletal: full muscle strength, no muscle tenderness, normal joint ROM Neurologic: AAOx3, sensation intact bilaterally Psychiatric: interacting appropriately, not anxious, not encephalopathic, thought process linear Lymph, Heme, Immunologic: no cervical LAD, no supraclavicular LAD - Time Spent With Patient Time Spent with Patient: greater than 35 minutes Time Spent with Patient: Greater than 35 minutes spent on this patients care, greater than 50% of time spent counseling, educating, and coordinating care regarding the above mentioned plan. ICD10 Worksheet Patient Problems: Problems Problem Status Onset Dehydration Acute Pneumonia Acute Acute gastroenteritis Acute Atrial fibrillation with RVR Acute Facial contusion Acute Facial fracture Acute Paroxysmal atrial fibrillation Acute Pneumonia Acute Hypertension Chronic
[2018-06-21] MEDS: ALPRAZolam 0.25 MG TAB PO PRN (20:05)
[2018-06-22] MEDS: FLUTICASONE HFA 220 MCG MDI IH SCH ×2 (09:04→20:06)
--- NOTE | 2018-06-22 09:38 | GCON ---
CARDIOLOGY CONSULTATION. DATE OF CONSULTATION: 06/21/2018 CHIEF COMPLAINT: Shortness of breath and tachycardia. HISTORY OF PRESENT ILLNESS: The patient is an 83-year-old patient with a history of paroxysmal atrial fibrillation and asthma. She presented with increasing hypoxia and shortness of breath. She got sick the Thursday prior to her evaluation with a sore throat. Over the course of the week, she became worse and went to see her primary care physician, Dr. Marlee Houston, at which time she was found to be tachycardic and was sent directly to the emergency department. Patient had evidence on chest x-ray of a patchy consolidation in the left upper lobe. The patient also had evidence of leukocytosis. I was asked to see the patient in consultation because of her atrial fibrillation and rapid ventricular response. At the time of my evaluation, the patient denies chest pain, shortness of breath , and feels like she is in sinus rhythm, although her monitor shows atrial fibrillation with a rapid ventricular response. PAST MEDICAL HISTORY: Significant for atrial fibrillation, status post Watchman procedure this past summer and currently on aspirin. She has reactive airway disease on steroid inhaler and albuterol. She has a history of hypertension, dyslipidemia, and a history of CVA remotely with a small lacunar infarct. FAMILY HISTORY: Her father suddenly and unexpectedly at age 76. Her mother had a myocardial infarction and the patient has a younger sibling with a history of NC. SOCIAL HISTORY: She lives at [facility] in independent living. She is physically active. She does not smoke or abuse alcohol. ALLERGIES: Adverse reactions include amlodipine, atorvastatin, Bystolic, pitavastatin, pravastatin, rosuvastatin. PHYSICAL EXAMINATION: VITAL SIGNS: The patient was afebrile. Blood pressure was 150/85, respirations 16 and unlabored. She was 92% on room air. Heart rate was 165 and ranged between 150 and 165 during our evaluation. NECK: Reveals no JVD. HEART: Reveals an irregular rhythm with a systolic murmur. LUNGS: Reveal diminished breath sounds bilaterally. ABDOMEN: Benign with positive bowel sounds. EXTREMITIES: Warm, dry, and well perfused without significant peripheral edema. She does not have an apparent pulse deficit. LABORATORY DATA: White count initially was 16.7 and trended down to 11.9. Chemistries were normal, except her glucose, which was 144. [id number] troponin was 0.00. Potassium 3.6. BUN and creatinine are 12 and 0.7. IMPRESSION/PLAN: The patient has paroxysmal and sustained atrial fibrillation, which has converted to sinus rhythm at this point. She has a rapid ventricular response when she is in atrial fibrillation. Patient has adverse reaction to Cardizem, but tolerates diltiazem fairly well. Last evening, I gave her 2 doses of the diltiazem 5 mg initially and then repeated that with another 5 mg, and this resulted in improved control of her ventricular rate. She has now converted to sinus rhythm, and should be a candidate for discharge in the AM. The patient may benefit from a true antiarrhythmic medication if she is found to have no evidence of ischemia. I think she may respond well to Rythmol 325mg Sr formulation twice daily if she does not have ischemia on a nuclear stress test. I will contact her PCP to see if she has had an ischemia evaluation and check our records as well. If she has had a negative ischemia evaluation in the past year she will not need further testing. I do think it may be reasonable to up the dose of her Diltiazem to 240mg daily if her blood pressure tolerates this change. Thank you for the consultation. We will follow with you during her course here in the hospital. /[id number]/MODL MTDD
[2018-06-22] MEDS: ENOXAPARIN 40 MG/0.4 ML SYR SC SCH (10:47)
[2018-06-22] MEDS: MULTIVITAMINS 1 EACH TAB PO SCH (10:48)
[2018-06-22] MEDS: DOXYCYCLINE HYCLATE 100 MG CAP/TAB PO SCH ×2 (10:48→20:05)
[2018-06-22] MEDS: DILTIAZEM CD 180 MG CAP PO SCH (10:48)
[2018-06-22] MEDS: predniSONE 20 MG TAB PO SCH (10:48)
[2018-06-22] MEDS: CYANO/VITAMIN B12 1000 MCG TAB PO SCH (10:48)
[2018-06-22] MEDS: ASPIRIN EC 81 MG TAB PO SCH (10:48)
[2018-06-22] MEDS: CHOLECALCIFEROL VIT D3 1,000 UNITS TAB PO SCH (10:48)
[2018-06-22] MEDS ORDERED: DILTIAZEM CD 120 MG CAP PO ONE (12:10)
--- NOTE | 2018-06-22 15:52 | ASMTCMCOM ---
CM Note CM Note Notes: Spoke with pt during rounds. Pt and live independently in [facility] with no services. is leaving town for a for a couple days on , but pt has son and daughter in law nearby. Pt also arranged for [facility] to provide someone to check on the pt daily and provide light housekeeping. CM confirmed this with the front desk team member. Pt has also been accepted by [facility] RN services. CM to follow. D/C Plan: [facility] with light housekeeping from and RN from [facility]. Date Signed: 06/22/2018 03:52 PM Electronically Signed By:Katelyn Wyman
--- NOTE | 2018-06-22 18:19 | HOSPPROG ---
Hospitalist Progress Note Assessment/Plan: 83 year old female with pmh of afib, COPD, admitted with CAP and COPD exacerbation along with Afib with RVR. 1. Afib w/RVR: Rates good at rest but still elevated with minimal exertion. Likely triggered by resp infection. - Increase dilt from 180 to 300mg daily (bp can tolerate) - Not on anticoagulation, had watchman procedure - Cardiology consulted, discussed case with Dr Coombs - Recommend outpatient holter monitor 2. Acute COPD exacerbation: Improving and on room air but still with wheezing - Continue prednisone, may require taper at dc - Not on albuterol/xopanex as this causes her to go into RVR 3. CAP: Not septic, cultures negative - Switch to oral abx (cefdinir, doxy) 4. HTN: BP not controlled - Increasing dilt as above, continue amlodipine VTE ppx: LMWH Code: DNR Dispo: Remain inpatient for mgmt of uncontrolled HR. Hopefully discharge tomorrow if rates better. Will need to f/u with cardiology Subjective: HR went up to 140-150s this afternoon after walking and was symptomatic with sob. Objective: Vital Signs Temp Pulse Resp BP Pulse Ox 36.7 C 87 14 157/81 H 93 06/22/18 16:00 06/22/18 16:00 06/22/18 16:00 06/22/18 16:00 06/22/18 16:00 06/21/18 06/22/18 06/23/18 05:59 05:59 05:59 Intake Total 350 2690 1000 Balance 350 2690 1000 - Physical Exam Constitutional: no apparent distress, appears nourished, not in pain Eyes: PERRL, anicteric sclera, EOMI Ears, Nose, Mouth, Throat: moist mucous membranes, hearing normal, ears appear normal, no oral mucosal ulcers Cardiovascular: regular rate and rhythym, systolic murmur, No edema Respiratory: no respiratory distress, no rales or rhonchi, expiratory wheeze Gastrointestinal: normoactive bowel sounds, soft, non-tender abdomen, no palpable masses Genitourinary: no bladder fullness, no bladder tenderness, no renal bruits Skin: no rashes or abrasions, no fluctuance, no induration Musculoskeletal: full muscle strength, no muscle tenderness, normal joint ROM Neurologic: AAOx3, sensation intact bilaterally Psychiatric: interacting appropriately, not anxious, not encephalopathic, thought process linear ICD10 Worksheet Patient Problems: Problems Problem Status Onset Dehydration Acute Pneumonia Acute chronic disease mgmt/transitional care Acute Acute gastroenteritis Acute Atrial fibrillation with RVR Acute Facial contusion Acute Facial fracture Acute Paroxysmal atrial fibrillation Acute Pneumonia Acute Hypertension Chronic
[2018-06-22] MEDS: DILTIAZEM CD 300 MG CAP PO SCH (20:05)
[2018-06-22] MEDS: ALPRAZolam 0.25 MG TAB PO PRN (20:14)
[2018-06-23] MEDS: DOXYCYCLINE HYCLATE 100 MG CAP/TAB PO SCH (08:25)
[2018-06-23] MEDS: predniSONE 20 MG TAB PO SCH (08:26)
[2018-06-23] MEDS: ASPIRIN EC 81 MG TAB PO SCH (08:26)
[2018-06-23] MEDS: CYANO/VITAMIN B12 1000 MCG TAB PO SCH (08:26)
[2018-06-23] MEDS: MULTIVITAMINS 1 EACH TAB PO SCH (08:26)
[2018-06-23] MEDS: DILTIAZEM CD 300 MG CAP PO SCH (08:26)
[2018-06-23] MEDS: CHOLECALCIFEROL VIT D3 1,000 UNITS TAB PO SCH (08:27)
[2018-06-23] MEDS: ENOXAPARIN 40 MG/0.4 ML SYR SC SCH (08:28)
[2018-06-23] MEDS ORDERED: CEFDINIR 300 MG CAP PO SCH (09:00)
[2018-06-23] MEDS: FLUTICASONE HFA 220 MCG MDI IH SCH (09:22)
--- NOTE | 2018-06-23 12:36 | PDIAF ---
- Diagnosis Code Status: Do Not Resuscitate - Medication Management Discharge Medications: electronically signed and located in the Home Medication List. - Orders Services needed: Home Care, Registered Nurse Home Care Face to Face: I certify that this patient was under my care and that I had the required [id number] encounter meeting the encounter requirements on the discharge day. My findings support the fact that the patient is homebound as defined in Home Care Face to Face Continued: CMS Chapter 7 Medicare Benefits Manual 30.1.1 , The condition of the patient is such that there exists a normal inability to leave home and consequently, leaving home would require a considerable and taxing effort. Isolation Type: None Additional Instructions: I sent the following medications to your pharmacy: 1. Diltiazem Cd (long-acting) 240mg daily 2. Prednisone taper. Take 30mg for 5 days, then 20mg for 5 days, then 10mg for 5 days then stop. 3. You have one more dose of the two antibiotics you were taking (doxycycline and cefdinir). I have discontinued your old diltiazem dose at 180mg daily. Please follow up with Dr Katie Kaiser as scheduled on 06/28. Please see your primary care doctor in the next 1-2 weeks. We have set up a home health RN to see you at your home. - Follow Up Care Current Providers and Referrals: Marlee Houston MD [Primary Care Provider] - As per Instructions
--- NOTE | 2018-06-23 12:37 | PDDCSUM ---
Discharge Summary Discharge Summary: Date of Admission: 06/19/2018 Date of Discharge: 06/23/2018 Consultants: cardiology (Dr Coombs) Discharge Diagnoses: 1. Atrial fibrillation with RVR 2. Community acquired pneumonia 3. Acute reactive airways disease exacerbation 4. HTN 5. H/o remote lacunar infarct in 2012 Brief Hospital Course: 83 year old female with pmh of afib, RAD/asthma who presented with dyspnea and tachycardia was found to have left upper lobe pneumonia and afib with RVR. She was treated for CAP with good response and has 1/2 day left of antibiotics at discharge. She was discharged with a prednisone taper as outlined below. She is on room air. Her afib proved more difficult to control. Dr Coombs saw the patient in consultation. Her rate control was increased (dilt 180 to 240) and she actually converted to sinus prior to discharge. She was mostly intolerant of albuterol/ xopanex as it would lead to RVR. She has had the Watchman procedure and is on aspirin only, no anticoagulation. Per cardiology, she may benefit from anti- arrhythmic therapy such as propafenone pending ischemic evaluation. Medications: Please refer to EMR for complete list. The following prescriptions were sent to her pharmacy: 1. Diltiazem Cd 240mg daily #30 2. Cefdinir 300mg BID #1 3. Doxycycline 100mg BID #1 4. Prednisone taper: 30mg x5 days, 20mg x5 days, 10mg x5 days, then stop Follow Up Plan: 1. To see hot wound spring production supervisor Katie Kaiser on 06/28 2. PCP follow up in 1-2 weeks 3. Consider ischemic evaluation if not done in last year. If negative, could consider propafenone for her afib Physical Exam: Vitals and telemetry reviewed, no episodes of tachycardia on day of discharge. Alert and oriented, RRR with systolic murmur, lungs with diminished breath sounds but improved and no wheezing, abdomen soft and nt, no edema or JVD.
--- NOTE | 2018-06-23 12:44 | ASDISCHSUM ---
Discharge Information Plan Status:Home with Home Health Medically Cleared to Leave:06/22/2018 Discharge Date:06/22/2018 CM D/C Disposition:Home Health Service ADT D/C Disposition:Home Health Service Projected Discharge Date:06/23/2018 11:00 AM Transportation at D/C:Family Discharge Delay Reason: Follow-Up Date:06/23/2018 11:00 AM Discharge Slot: Final Diagnosis: Placement Information Referral Type:*Senior Care/SNF Referral ID:[id number] Provider Name:[facility] Address 1:[address] Phone Number: Address 2: Fax Number: [facility]:[place] Selection Factors: State:[place] Patient Contact Information Contact Name:DONNELL Relationship: Address:[address] City:[place] Alternate Phone: State/Zip Code:[place] [address] Email: Financial Information Financial Class:Medicare Primary Plan Desc:MEDICARE INPATIENT Primary Plan Number:[id number] Secondary Plan Desc:[place] [employer] [place] Secondary Plan Number:[id number] Assessment Information [facility] CM Progress Note CM Note CM Note Notes: Patient is 83 year old female, seen in [facility] ED on 06/18/18, diagnosed for left upper lobe pneumonia and atrial fibrillation, converted spontaneously, and discharged on doxycycline for pneumonia. She presented again with her with shortness of breath, O2 sat in high 80's. Patient admitted to continue treatment for pneumonia and dehydration. CM to follow. Current D/C Plan: Likely independent. Date Signed: 06/20/2018 05:24 PM Electronically Signed By:Marjan Crabtree LACE GLORIA Length of stay for Answers: 2 days current admission Acuity / Level of Answers: Yes Care: Did the patient have an inpatient admission? Comorbidities - select Answers: Any tumor (including all that apply lymphoma or leukemia) Other Notes: AFib; HTN # of Emergency department Answers: 1-2 visits in the last 6 months Score: 9 Date Signed: 06/23/2018 12:41 PM Electronically Signed By:Emma Gee RN [facility] CM Progress Note CM Note CM Note Notes: CM met with pt and Fracnisco ([phone]). Both live independenlty in [facility] with no services. Pt and expressed concerns that after discharge pt would benefit from RN services because is leaving [facility] for a for a couple days. CM spoke with Tiarra from [facility] and they do not provide skilled RN services. CM referred pt to [facility]. CM to follow. Plan: [facility] with [facility] Date Signed: 06/21/2018 12:04 PM Electronically Signed By:SONI Orozco [facility] CM Progress Note CM Note CM Note Notes: Spoke with pt during rounds. Pt and live independently in [facility] with no services. is leaving [facility] for a for a couple days on , but pt has son and daughter in law nearby. Pt also arranged for [facility] to provide someone to check on the pt daily and provide light housekeeping. CM confirmed this with the front office manager. Pt has also been accepted by [facility] RN services. CM to follow. D/C Plan: [facility] living with light housekeeping from and RN from [facility]. Date Signed: 06/22/2018 03:52 PM Electronically Signed By:Katelyn Wyman Case Management Discharge Plan Note Case Management Discharge Discharge Order Complete? Answers: Yes Patient to Obtain Answers: via Family Medications Transportation Arranged Answers: Family/Friends Faxed Final Orders Answers: Yes Agency/Facility Transfer Answers: Yes Report Printed & Faxed to Receiving Agency Family Notified Answers: Yes Notes: on phone Discharge Comments Notes: 06/23/2018 Case Management Note Phone call from Francisco today. Francisco has cancelled his travel plans and will stay in [place] to care for pt. Notified [facility] of d/c. Faxed final orders. Provided home care brochure to pt. Case Management d/c poc: return to [facility] [place] with addition of [facility] RN Date Signed: 06/23/2018 12:43 PM Electronically Signed By:Emma Gee RN Intervention Information Intervention Type:*Incorrect Registration Date of Service:06/20/2018 01:52 PM Patient Type:Observation Staff Member:Brittney Vidales Hours: Discipline: Severity: Comment:
--- NOTE | 2018-06-23 12:44 | ASMTDCNOTE ---
Case Management Discharge Discharge Order Complete? Answers: Yes Patient to Obtain Answers: via Family Medications Transportation Arranged Answers: Family/Friends Faxed Final Orders Answers: Yes Agency/Facility Transfer Answers: Yes Report Printed & Faxed to Receiving Agency Family Notified Answers: Yes Notes: on phone Discharge Comments Notes: 06/23/2018 Case Management Note Phone call from Francisco today. Francisco has cancelled his travel plans and will stay in [place] to care for pt. Notified [facility] of d/c. Faxed final orders. Provided home care brochure to pt. Case Management d/c poc: return to [facility] [place] with addition of [facility] RN Date Signed: 06/23/2018 12:43 PM Electronically Signed By:Emma Gee RN
[2018-06-23 13:01] VITALS: BP 119/70
== END 2018-06-23 13:47 | disposition home health service (06) | DRG 308 ==
LOC: INTOOBSV 12:46 → F2W 14:53 → OBSVTOIN 06-20 14:39
PROVIDERS: ADMIT Internal Medicine; ATTEND Internal Medicine
DX: I48.0 Paroxysmal atrial fibrillation (principal); J18.9 Pneumonia, unspecified organism; J45.901 Unspecified asthma with (acute) exacerbation; I10 Essential (primary) hypertension; E78.5 Hyperlipidemia, unspecified; Z86.73 Personal history of transient ischemic attack (TIA), and cerebral infarction without residual deficits; J96.91 Respiratory failure, unspecified with hypoxia
CPT/HCPCS: 84484-PO; 96365; 97161-GP; G0378; G8978-GP-CI; G8979-GP-CI; G8980-GP-CI; J0456; J0696; J1650; J7512

== ENCOUNTER → 2018-06-28 | Outpatient (CLI) | payer OTHER | LOC: BHFA 12:45 | PROVIDERS: ATTEND Internal Medicine Cardiovascular Disease | DX: I48.91 Unspecified atrial fibrillation (principal); I63.9 Cerebral infarction, unspecified; I10 Essential (primary) hypertension; E78.5 Hyperlipidemia, unspecified ==

== ENCOUNTER 2018-11-14 00:15 | Observation (INO) | payer OTHER ==
[2018-11-14] MEDS ORDERED: IPRATROPIUM/ALBUTEROL 3 ML DEYVIAL ONE (00:27)
[2018-11-14] MEDS ORDERED: methylPREDNISolone SOD SUCC 125 MG/2 ML VIAL IVP ONE (00:39)
[2018-11-14] MEDS ORDERED: NS 500 ML IV ONE (00:39)
--- NOTE | 2018-11-14 00:39 | EDPHY ---
H & P Stated Complaint: ASTHMA ATTACK, UNDER TX FOR PNU. Time Seen by Provider: 11/14/18 00:35 HPI/ROS: HPI: This is an 83-year-old female who presents with Chief Complaint: Asthma exacerbation, shortness of breath Location: Chest Quality: Wheezing, dyspnea Duration: Since Thursday Signs and Symptoms: + shortness of breath at rest, + shortness of breath on exertion, + productive cough cough, no chest pain, no palpitations, no lower extremity edema, + wheezing, no orthopnea, no paroxysmal nocturnal dyspnea, no fever, no injury/trauma, no hemoptysis, no carpal pedal spasms Timing: Worse this evening before bed Severity: Moderate Context: Patient presents with increased shortness of breath at rest and on exertion accompanied by wheezing and productive cough that worsened this evening around bedtime. Thursday she started to experience increased wheezing, fatigue and was seen by her primary care provider. She was diagnosed with pneumonia, no chest x-ray obtained, and started on azithromycin and give "steroid shot in the office." She reports no relief of her symptoms. In fact she feels worse this evening with difficulty breathing or ability to take a deep breath. Has had the pneumococcal vaccine. Denies any fever, neck stiffness, sore throat, lower extremity edema, orthopnea, chest pain, palpitations. Patient has a history of asthma. Admissions related to asthma exacerbation but no intubations required. She is extremely sensitive to both albuterol and Xopenex which causes her to go into atrial fibrillation with RVR. She is status post Watchman procedure and only takes aspirin. Not on any anticoagulation. Modifying Factors: Comment: ROS: A comprehensive 10 system review of systems is otherwise negative aside from elements mentioned in the history of present illness. MEDICAL/SURGICAL/SOCIAL HISTORY: Medical history: ASTHMA, MILD ALLERGIC RHINITIS, GLASSES, HTN, EAR INFECTIONS WITH MILD HEARING LOSS,MISCARRIAGES, POLYHYDRAMNIOS WITH , FIBROCYSTIC DISEASE, ELBOW FX, ROTATOR CUFF TEARS AND REPAIRS, CATARACTS SURGERY, STROKE NOVEMBER 2012, afib on aspirin Surgical history: Watchman procedure, cataract surgery, rotator cuff repair, bilateral sides mastectomies, hysterectomy, tonsillectomy Social history: Retired. . Nonsmoker CONSTITUTIONAL: Elderly nontoxic-appearing, appears uncomfortable, white female , at bedside, awake and alert, [id number] distress HEENT: Atraumatic and normocephalic, PERRL, EOMI. Nares patent; no rhinorrhea; no nasal mucosal edema. Tympanic membranes clear. Oropharynx clear, no exudate and moist pink mucosa. Airway patent. No lymphadenopathy. No meningismus. Cardiovascular: Normal S1/S2, regular rate, regular rhythm, without murmur rub or gallop. PULMONARY/CHEST: Symmetrical and nontender. rhonchi throughout. Poor air movement. Prolonged expiratory effort. + accessory muscle usage. + tachypnea, + shallow breathing pattern ABDOMEN: Soft, nondistended, nontender, no rebound, no guarding, no peritoneal signs, no masses or organomegaly. No CVAT. EXTREMITIES: 2/2 pulses, strength 5/5, no deformities, no clubbing, no cyanosis or edema. NEUROLOGICAL: no focal neuro deficits. GCS 15. SKIN: Warm and dry, no erythema. no rash. Good capillary refill. Source: Patient Exam Limitations: No limitations - Personal History Current Tetanus/Diphtheria Vaccine: No Current Tetanus Diphtheria and Acellular Pertussis (TDAP): No Tetanus Vaccine Date: 2006 - Medical/Surgical History Hx Asthma: Yes Hx Chronic Respiratory Disease: No Hx Diabetes: No Hx Cardiac Disease: Yes Hx Renal Disease: No Hx Cirrhosis: No Hx Alcoholism: No Hx HIV/AIDS: No Hx Splenectomy or Spleen Trauma: No Other PMH: HX: ASTHMA, MILD ALLERGIC RHINITIS, GLASSES, HTN, EAR INFECTIONS WITH MILD HEARING LOSS, TONSILLECTOMY, MISCARRIAGES, POLYHYDRAMNIOS WITH , HYSTERECTOMY, B SUBCUTANEOUS MASTECTOMIES, FIBROCYSTIC watchman implant. DISEASE, ELBOW FX, ROTATOR CUFF TEARS AND REPAIRS, CATARACTS SURGERY, STROKE NOVEMBER 2012, afib - Social History Smoking Status: Never smoked Constitutional: Initial Vital Signs Temperature (C) 36.6 C 11/14/18 00:17 Heart Rate 77 11/14/18 00:17 Respiratory Rate 24 H 11/14/18 00:17 Blood Pressure 183/89 H 11/14/18 00:17 O2 Sat (%) 88 L 11/14/18 00:17 O2 Delivery Mode Nasal Cannula O2 (L/minute) 3 Allergies/Adverse Reactions: amlodipine Allergy (Unknown, Unverified 06/23/18 14:27) light headedness nebivolol Allergy (Unknown, Unverified 06/23/18 14:27) fatigue rosuvastatin Allergy (Unknown, Unverified 06/23/18 14:27) musle weakness atorvastatin calcium [From Lipitor] Allergy (Verified 06/19/18 11:38) muscle weakness pitavastatin Allergy (Verified 06/19/18 11:38) muscle weakness pravastatin Allergy (Verified 06/19/18 11:38) muscle weakness atorvastatin calcium Allergy (Unknown, Uncoded 06/23/18 14:27) muscle weakness Home Medications: Medication Instructions Recorded Albuterol [Proventil Inhaler HFA 1 - 2 puffs IH Q6HRS PRN 09/27/13 (*)] Fluticasone Hfa 220 Mcg [Flovent 1 inh IH BID 04/04/16 220 MCG Hfa MDI (*)] Alendronate Sodium [Fosamax 70 MG 70 mg PO TU@0700 07/24/17 (*)] Loratadine 10 mg PO DAILY PRN 07/24/17 ALPRAZolam [Xanax 0.25 MG (*)] 0.125 mg PO HS PRN 10/25/17 Cholecalciferol Vit D3 [Vitamin D3 1,000 units PO DAILY 10/25/17 (*)] Cyanocobalamin (Vitamin B-12) 1,000 mcg PO DAILY 10/25/17 [B-12] Estradiol [Yuvafem] 10 mcg VG TU@07 02/11/18 Naproxen Sodium [Aleve 220 MG (*)] 220 mg PO HS PRN 02/11/18 Aspirin EC [Aspirin EC 81 mg (*)] 81 mg PO DAILY 06/19/18 Multivitamins [Multivitamin (*)] 1 each PO DAILY 06/19/18 Cefdinir [Omnicef (*)] 300 mg PO BID #1 cap 06/23/18 Diltiazem HCl [Diltiazem 24Hr Cd] 240 mg PO DAILY #30 cap.er.24h 06/23/18 Diltiazem [Cardizem Ir Q6hr] 30 mg PO Q6HRS PRN tab 06/23/18 Doxycycline Hyclate 100 mg PO BID #1 tablet 06/23/18 predniSONE 30 mg PO DAILY #30 tab 06/23/18 Medical Decision Making - Diagnostics EKG Interpretation: 12 lead EKG: Indication: Shortness of breath Rhythm: Sinus tachycardia, rate of 102 beats per minute [place]: Normal Intervals: Normal QRS: Normal ST segments: Nonspecific change INTERPRETATION: No acute ischemic changes The 12 lead EKG was interpreted by myself and with attending. ED Course/Re-evaluation: Vital signs reviewed and show tachypnea and hypoxia with O2 sats 86-87% on room air upon arrival. Placed on rn cardiac rehab and oxygen therapy. IV access, laboratory studies, blood cultures, EKG, chest x-ray, respiratory pathogen swab ordered Patient given 500 cc normal saline and IV Solu-Medrol 125 mg EKG my read shows sinus tachycardia with a rate of 102 beats minute, nonspecific ST changes. 1318: Laboratory studies reviewed. No leukocytosis/anemia/platelet dysfunction /acute kidney injury/electrolyte imbalance/CHF. 0140: Chest x-ray my read with attending shows resolution of opacity from pneumonia in June. No sylvester opacity, no effusion Reassessed patient who reports mild relief of symptoms. Vital signs are improving and tachycardia/tachypnea resolved. 0145: ED decision to consult hospitalist for admission for asthma exacerbation , hypoxia, acute on chronic respiratory failure. Spoke with Dr. Barajas, who reports she does not believe antibiotics are indicated at this time. She will kindly admit patient to observation status and provide further care. This patient was seen under the supervision of my secondary supervising physician. I evaluated and cared for this patient with attending. Differential Diagnosis: Shortness of breath including but not limited to pulmonary infectious process, COPD, asthma, pulmonary embolus and congestive heart failure. - Data Points Laboratory Results: Laboratory Results 11/14/18 00:50 11/14/18 00:50 11/14/18 11/14/18 00:50 00:50 WBC 9.23 10^3/uL 10^3/uL (3.80-9.50) RBC 5.14 10^6/uL 10^6/uL (4.18-5.33) Hgb 15.2 g/dL g/dL (12.6-16.3) Hct 44.8 % % (38.0-47.0) MCV 87.2 fL fL (81.5-99.8) MCH 29.6 pg pg (27.9-34.1) MCHC 33.9 g/dL g/dL (32.4-36.7) RDW 14.5 % % (11.5-15.2) Plt Count 245 10^3/uL 10^3/uL (150-400) MPV 10.5 fL fL (8.7-11.7) Neut % (Auto) 55.4 % % (39.3-74.2) Lymph % (Auto) 28.7 % % (15.0-45.0) [place] % (Auto) 10.1 % % (4.5-13.0) Eos % (Auto) 4.9 % % (0.6-7.6) Baso % (Auto) 0.5 % % (0.3-1.7) Nucleat RBC Rel Count 0.0 % % (0.0-0.2) Absolute Neuts (auto) 5.11 10^3/uL 10^3/uL (1.70-6.50) Absolute Lymphs (auto) 2.65 10^3/uL 10^3/uL (1.00-3.00) Absolute Monos (auto) 0.93 10^3/uL H 10^3/uL (0.30-0.80) Absolute Eos (auto) 0.45 10^3/uL H 10^3/uL (0.03-0.40) Absolute Basos (auto) 0.05 10^3/uL 10^3/uL (0.02-0.10) Absolute Nucleated RBC 0.00 10^3/uL 10^3/uL (0-0.01) Immature Gran % 0.4 % % (0.0-1.1) Immature Gran # 0.04 10^3/uL 10^3/uL (0.00-0.10) Platelet Estimate ADEQUATE (ADEQ) Sodium 142 mEq/L mEq/L (135-145) Potassium 3.9 mEq/L mEq/L (3.5-5.2) Chloride 110 mEq/L mEq/L (97-110) Carbon Dioxide 20 mEq/l L mEq/l (22-31) Anion Gap 12 mEq/L mEq/L (6-14) BUN 17 mg/dL mg/dL (7-23) Creatinine 0.7 mg/dL mg/dL (0.6-1.0) Estimated GFR > 60 Glucose 107 mg/dL H mg/dL (70-100) Calcium 9.4 mg/dL mg/dL (8.5-10.4) Magnesium 2.0 mg/dL mg/dL (1.6-2.3) NT-Pro-B Natriuret Pep 222 pg/mL pg/mL (0-450) Medications Given: Discontinued Medications Sodium Chloride (Ns) 500 mls @ 1,000 mls/hr IV EDNOW ONE PRN Reason: Protocol Stop: 11/14/18 01:08 Last Admin: 11/14/18 01:03 Dose: 500 mls Methylprednisolone Sodium Succinate (Solu-Medrol) 125 mg IVP EDNOW ONE Stop: 11/14/18 00:40 Last Admin: 11/14/18 01:03 Dose: 125 mg Departure - Departure Disposition: [facility] Acute Clinical Impression: Hypoxia Asthma exacerbation Qualifiers: Asthma severity: moderate Asthma persistence: persistent Qualified Code(s): J45.41 - Moderate persistent asthma with (acute) exacerbation Acute and chronic respiratory failure ([id number]) Qualifiers: Respiratory failure complication: hypoxia Qualified Code(s): J96.21 - Acute and chronic respiratory failure with hypoxia Condition: Fair
[2018-11-14 01:01] LABS: PLATELET COUNT 245 10^3/uL (150-400)
[2018-11-14] MEDS ORDERED: ONDANSETRON DISINTEGRATING 4 MG TAB PO PRN (02:49)
[2018-11-14] MEDS ORDERED: ONDANSETRON 4 MG/2 ML VIAL IVP PRN (02:49)
[2018-11-14] MEDS ORDERED: ACETAMINOPHEN 325 MG TAB PO PRN (02:49)
[2018-11-14] MEDS ORDERED: ALBUTEROL 3 ML DEYVIAL IH PRN (02:49)
[2018-11-14] MEDS ORDERED: NS 1,000 ML IV SCH (03:00)
--- NOTE | 2018-11-14 05:35 | CPEKG ---
Test Reason : OPEN Blood Pressure : / mmHG Vent. Rate : 102 BPM Atrial Rate : 103 BPM P-R Int : 163 ms QRS Dur : 092 ms QT Int : 367 ms P-R-T Axes : 052 -09 069 degrees QTc Int : 479 ms Sinus tachycardia Probable left atrial enlargement Abnormal inferior Q waves Consider anterior infarct Confirmed by Antonio Victoria ([id number]) on 11/14/2018 5:34:42 AM Referred By: Antonio Victoria Confirmed By:Antonio Victoria
--- NOTE | 2018-11-14 06:59 | PDGENHP ---
History and Physical - Chief Complaint Short of breath and cough - History of Present Illness Source-patient provides history appears reliable. EMR was reviewed and case discussed with ED provider. HPI-is a very pleasant 83-year-old female with past medical history significant for asthma, allergic rhinitis, HTN, paroxysmal atrial fibrillation status post a Watchman procedure, CVA in 2012, hearing deficit who presents emergency department today with complaints of worsening shortness of breath and cough. Patient reports she developed symptoms several days ago saw her PCP on Thursday are 5 days ago with complaints of shortness of breath or wheezing. She was given an IM dose of steroids but refused a steroid burst at that time. Patient notes that she has multiple sick contacts and had a spending time with her grandchildren who have upper respiratory symptoms including runny nose cough. Patient denies any chest pain, palpitations or edema. She does report a nonproductive congested-sounding cough. She notes several times that she feels like she can't get anything up is stuck in her chest. She denies any fevers or chills. No nausea vomiting diarrhea or abdominal pain. No dysuria hematuria. Patient is anxious to see improvement in her symptoms she was hospitalized in June 2018 for pneumonia. Patient with longstanding history of asthma she has had several hospitalizations but never required intubation for respiratory support. She does not normally wear oxygen at home. In ED, patient was noted to be hypoxic to 86% on room air. She did improve O2 sat with supplemental oxygen 3 liters/minute. History Information - Allergies/Home Medication List Allergies/Adverse Reactions: amlodipine Allergy (Unknown, Unverified 06/23/18 14:27) light headedness nebivolol Allergy (Unknown, Unverified 06/23/18 14:27) fatigue rosuvastatin Allergy (Unknown, Unverified 06/23/18 14:27) musle weakness atorvastatin calcium [From Lipitor] Allergy (Verified 06/19/18 11:38) muscle weakness pitavastatin Allergy (Verified 06/19/18 11:38) muscle weakness pravastatin Allergy (Verified 06/19/18 11:38) muscle weakness atorvastatin calcium Allergy (Unknown, Uncoded 06/23/18 14:27) muscle weakness Home Medications: Albuterol [Proventil Inhaler HFA (*)] 1 - 2 puffs IH Q6HRS PRN 09/27/13 [Last Taken 07/23/17 21:00] Fluticasone Hfa 220 Mcg [Flovent 220 MCG Hfa MDI (*)] 1 inh IH BID 04/04/16 [ Last Taken 04/12/18 20:00] Alendronate Sodium [Fosamax 70 MG (*)] 70 mg PO TU@0700 07/24/17 [Last Taken 08:00] Loratadine 10 mg PO DAILY PRN 07/24/17 [Last Taken 04/12/18 08:00] ALPRAZolam [Xanax 0.25 MG (*)] 0.125 mg PO HS PRN 10/25/17 [Last Taken Unknown] Cholecalciferol Vit D3 [Vitamin D3 (*)] 1,000 units PO DAILY 10/25/17 [Last Taken 04/12/18 08:00] Cyanocobalamin (Vitamin B-12) [B-12] 1,000 mcg PO DAILY 10/25/17 [Last Taken 08:00] Estradiol [Yuvafem] 10 mcg VG TU@07 02/11/18 [Last Taken 04/12/18 20:00] Naproxen Sodium [Aleve 220 MG (*)] 220 mg PO HS PRN 02/11/18 [Last Taken Unknown ] Aspirin EC [Aspirin EC 81 mg (*)] 81 mg PO DAILY 06/19/18 [Last Taken Unknown] Multivitamins [Multivitamin (*)] 1 each PO DAILY 06/19/18 [Last Taken Unknown] I have personally reviewed and updated: family history, medical history, social history, surgical history - Past Medical History atrial fibrillation (Paroxysmal, last ambulatory event monitor was 2 years ago, the patient reportedly had no events, systemic anticoagulation was discontinued , she was placed on low-dose aspirin status post Watchman procedure), asthma ( Persistent with allergic rhinitis, no history of exacerbation requiring intubation but has been admitted in the past.), CVA (With small lacunar infarcts in November of 2012), hypertension, hyperlipidemia Additional medical history: Osteoarthritis - Surgical History Additional surgical history: Cataracts, rotator cuff, elbow ORIF, mastectomy x2 , hysterectomy, tonsillectomy, DIC, tonsillectomy and adenoidectomy, Watchman procedure - Family History Additional family history: Father with sudden cardiac at age 76, mother with myocardial infarction at age 74, younger sibling with myocardial infarction - Social History Smoking Status: Never smoked Alcohol Use: None Drug Use: None Additional social history: Lives at [facility] with her , physically active and works out multiple times weekly, no recent reduction in exercise tolerance. Cor status is limited patient does not want any cardiac resuscitation. She is amenable to trial of respiratory support Review of Systems Review of Systems: ROS: 10pt was reviewed & negative except for what was stated in HPI & below Physical Exam Physical Exam: Selected Entries 11/14/18 11/14/18 00:17 03:56 Blood Pressure Automatic Method Heart Rate 77 84 Respiratory 24 H 16 Rate O2 Sat (%) 88 L 93 Temperature (C) 36.6 C 36.6 C Blood Pressure 183/89 H 135/77 H Mean Arterial 120 H 96 Pressure (MAP) O2 (L/minute) 3 Activity During At Rest Vital Signs O2 Delivery Room Air Nasal Cannula Mode Blood Pressure Right Source Upper Arm Heart Rate/ Monitor Temperature Oral Oral Source Temp Pulse Resp BP Pulse Ox 36.6 C 84 16 135/77 H 93 11/14/18 03:56 11/14/18 03:56 11/14/18 03:56 11/14/18 03:56 11/14/18 03:56 O2 (L/minute) 3 Constitutional: no apparent distress, other (NAD. Patient is resting quietly in bed with intermittent coughing fits.) Eyes: PERRL (Slightly decreased reactivity light bilaterally but symmetric.), anicteric sclera, EOMI, No scleral injection Ears, Nose, Mouth, Throat: moist mucous membranes, other (No nasal discharge peers are some oropharyngeal erythema without any exudates.), No poor dentition Cardiovascular: regular rate and rhythym, no murmur, rub, or gallop, pulses symmetric bilaterally, No edema Peripheral Pulses: 2+: dorsalis-pedis (R), dorsalis-pedis (L) Respiratory: no respiratory distress, reduced air movement (Right lower lung field.), expiratory wheeze, No no rales or rhonchi, No clear to auscultation ( Diffuse inspiratory and expiratory wheezing), No inspiratory crackles, No respiratory distress, No dullness to percussion Gastrointestinal: normoactive bowel sounds, soft, non-tender abdomen, no palpable masses, No distension Genitourinary: no bladder tenderness, No ahumada in urethra Skin: warm, normal color, no rashes or abrasions, No rash Musculoskeletal: full muscle strength (Patient able to sit up independently. Moves all extremities.) Neurologic: AAOx3, sensation intact bilaterally, other (Grossly nonfocal exam.) , No facial droop Psychiatric: interacting appropriately, not anxious, No poor insight, No poor judgement, No poor memory Lab Data & Imaging Review 11/14/18 00:50 11/14/18 00:50 WBC 9.23 10^3/uL (3.80-9.50) 11/14/18 00:50 RBC 5.14 10^6/uL (4.18-5.33) 11/14/18 00:50 Hgb 15.2 g/dL (12.6-16.3) 11/14/18 00:50 Hct 44.8 % (38.0-47.0) 11/14/18 00:50 MCV 87.2 fL (81.5-99.8) 11/14/18 00:50 MCH 29.6 pg (27.9-34.1) 11/14/18 00:50 MCHC 33.9 g/dL (32.4-36.7) 11/14/18 00:50 RDW 14.5 % (11.5-15.2) 11/14/18 00:50 Plt Count 245 10^3/uL (150-400) 11/14/18 00:50 MPV 10.5 fL (8.7-11.7) 11/14/18 00:50 Neut % (Auto) 55.4 % (39.3-74.2) 11/14/18 00:50 Lymph % (Auto) 28.7 % (15.0-45.0) 11/14/18 00:50 [place] % (Auto) 10.1 % (4.5-13.0) 11/14/18 00:50 Eos % (Auto) 4.9 % (0.6-7.6) 11/14/18 00:50 Baso % (Auto) 0.5 % (0.3-1.7) 11/14/18 00:50 Nucleat RBC Rel Count 0.0 % (0.0-0.2) 11/14/18 00:50 Absolute Neuts (auto) 5.11 10^3/uL (1.70-6.50) 11/14/18 00:50 Absolute Lymphs (auto) 2.65 10^3/uL (1.00-3.00) 11/14/18 00:50 Absolute Monos (auto) 0.93 10^3/uL (0.30-0.80) H 11/14/18 00:50 Absolute Eos (auto) 0.45 10^3/uL (0.03-0.40) H 11/14/18 00:50 Absolute Basos (auto) 0.05 10^3/uL (0.02-0.10) 11/14/18 00:50 Absolute Nucleated RBC 0.00 10^3/uL (0-0.01) 11/14/18 00:50 Immature Gran % 0.4 % (0.0-1.1) 11/14/18 00:50 Immature Gran # 0.04 10^3/uL (0.00-0.10) 11/14/18 00:50 Platelet Estimate ADEQUATE (ADEQ) 11/14/18 00:50 Sodium 142 mEq/L (135-145) 11/14/18 00:50 Potassium 3.9 mEq/L (3.5-5.2) 11/14/18 00:50 Chloride 110 mEq/L (97-110) 11/14/18 00:50 Carbon Dioxide 20 mEq/l (22-31) L 11/14/18 00:50 Anion Gap 12 mEq/L (6-14) 11/14/18 00:50 BUN 17 mg/dL (7-23) 11/14/18 00:50 Creatinine 0.7 mg/dL (0.6-1.0) 11/14/18 00:50 Estimated GFR > 60 11/14/18 00:50 Glucose 107 mg/dL (70-100) H 11/14/18 00:50 Calcium 9.4 mg/dL (8.5-10.4) 11/14/18 00:50 Magnesium 2.0 mg/dL (1.6-2.3) 11/14/18 00:50 NT-Pro-B Natriuret Pep 222 pg/mL (0-450) 11/14/18 00:50 Imaging Review: Chest x-ray reviewed. Report is still pending. No acute consolidations noted. Perihilar prominence. Visualized and Interpreted Chest x-ray results: Yes Visualized and Interpreted EKG results: Yes EKG additional interpertation: Sinus tachycardia in the 1 100s. Lad. Q-waves in inferior leads. No acute ST changes. QTC is 479. Assessment & Plan Assessment: This a very pleasant 83-year-old female with past medical history significant for asthma, allergic rhinitis, HTN, paroxysmal atrial fibrillation status post a Watchman procedure, CVA in 2012, hearing deficit who presents emergency department today with complaints of worsening shortness of breath and cough. #Acute and chronic respiratory failure ([id number]) (Acute) - patient presenting with likely viral preceding viral illness that asthma exacerbation. She is requiring 3 L per minute of oxygen. She has had some improvement since arrival to the ED following 125 mg of Solu-Medrol. Patient is concerned regarding any sort of nebulizer treatment as she has developed AFib in the past with albuterol and Xopenex. Overall she does appear to be improving. Offered antitussives and other supportive medications which patient declines at this time as she feels is not helped in the past. Will continue with scheduled steroids. Respiratory PCR panel is pending. #Asthma exacerbation (Acute) - continue Solu-Medrol as noted above and supplemental oxygen. #Hypoxia (Acute) - titrating O2 down to 2 L well and a bedside. Patient is able to maintain her sats greater than 90% on 2 L. will continue to titrate as tolerated maintain greater than 90% patient does not normally wear oxygen at home. #Benign essential hypertension resume patient's home medications. Her initial blood pressures were quite elevated when she was having acute respiratory exacerbation. Patient is on diltiazem for her history of AFib will resume. #Paroxysmal atrial fibrillation - patient currently rate controlled. She is on a daily aspirin. Status post Watchman procedure. Will monitor on pulse ox at this time no indication for continues tele. FEN - IV fluids overnight. Advance diet as tolerated. Electrolytes within acceptable limits. Place p.r.n. PPX-SCDs. Anticipate short hospital stays. Will encourage early mobilization. Cor status-limited. Patient does not want any cardiac resuscitation (including compressions, defibrillation, IV medications) she has however amenable to intubation if needed acutely only. Dispo - patient admitted to observation status on the med surge floor for continued respiratory support treatment for asthma exacerbation.
[2018-11-14] MEDS ORDERED: NAPROXEN SODIUM 220 MG TAB PO PRN (08:54)
[2018-11-14] MEDS ORDERED: DILTIAZEM 30 MG TAB PO PRN (08:54)
[2018-11-14] MEDS ORDERED: ALPRAZolam 0.25 MG TAB PO PRN (08:54)
[2018-11-14] MEDS ORDERED: Herbals/Supplements -Info Only PO SCH (09:00)
[2018-11-14] MEDS: CYANO/VITAMIN B12 1000 MCG TAB PO SCH (10:05)
[2018-11-14] MEDS: CHOLECALCIFEROL VIT D3 1,000 UNITS TAB PO SCH (10:06)
[2018-11-14] MEDS: MULTIVITAMINS 1 EACH TAB PO SCH (10:06)
[2018-11-14] MEDS: MAGNESIUM OXIDE 400 MG TAB PO SCH (10:06)
[2018-11-14] MEDS: ASPIRIN EC 81 MG TAB PO SCH (10:06)
[2018-11-14] MEDS: DILTIAZEM XR 240 MG CAP PO SCH (10:13)
[2018-11-14] MEDS: FLUTICASONE HFA 220 MCG MDI IH SCH ×3 (10:45→21:56)
[2018-11-14] MEDS: ENOXAPARIN 40 MG/0.4 ML SYR SC SCH (11:09)
--- NOTE | 2018-11-14 12:34 | HOSPPROG ---
Hospitalist Progress Note Assessment/Plan: #Asthma Exacerbation #Viral Bronchitis, Human Metapneumovirus #Acute Respiratory Failure #Paroxysmal Afib #HTN Plan: The pt is improving but still requires hospitalization cont Prednisone, will change next dose to now. Can decrease amount to once daily cont nebs restart home meds Lovenox for DVT proph PT/OT Subjective: still with sob. + cough. no n/v. afebrile Objective: Vital Signs Temp Pulse Resp BP Pulse Ox 36.5 C 103 H 16 159/83 H 94 11/14/18 11:24 11/14/18 11:24 11/14/18 11:24 11/14/18 11:24 11/14/18 11:24 11/13/18 11/14/18 11/15/18 05:59 05:59 05:59 Intake Total 1000 Balance 1000 - Physical Exam Constitutional: no apparent distress Eyes: PERRL, EOMI Ears, Nose, Mouth, Throat: moist mucous membranes, hearing normal Cardiovascular: regular rate and rhythym, No edema Respiratory: reduced air movement, expiratory wheeze, other (increased work of breathing) Gastrointestinal: normoactive bowel sounds, soft, non-tender abdomen Skin: warm Neurologic: AAOx3 Psychiatric: interacting appropriately, not anxious, not encephalopathic Lymph, Heme, Immunologic: No petechiae ICD10 Worksheet Patient Problems: Problems Problem Status Onset Acute and chronic respiratory failure ([id number]) Acute Asthma exacerbation Acute Hypoxia Acute Acute gastroenteritis Acute Atrial fibrillation with RVR Acute Dehydration Acute Facial contusion Acute Facial fracture Acute Paroxysmal atrial fibrillation Acute Pneumonia Acute Pneumonia Acute chronic disease mgmt/transitional care Acute Hypertension Chronic
[2018-11-14] MEDS: predniSONE 20 MG TAB PO SCH (13:21)
[2018-11-14] MEDS ORDERED: predniSONE 20 MG TAB PO SCH (21:00)
[2018-11-15] MEDS: CHOLECALCIFEROL VIT D3 1,000 UNITS TAB PO SCH (08:38)
[2018-11-15] MEDS: CYANO/VITAMIN B12 1000 MCG TAB PO SCH (08:39)
[2018-11-15] MEDS: predniSONE 20 MG TAB PO SCH (08:39)
[2018-11-15] MEDS: DILTIAZEM XR 240 MG CAP PO SCH (08:40)
[2018-11-15] MEDS: MULTIVITAMINS 1 EACH TAB PO SCH (08:40)
[2018-11-15] MEDS: ASPIRIN EC 81 MG TAB PO SCH (08:40)
[2018-11-15] MEDS: MAGNESIUM OXIDE 400 MG TAB PO SCH (08:41)
[2018-11-15] MEDS: FLUTICASONE HFA 220 MCG MDI IH SCH (08:41)
[2018-11-15] MEDS: ENOXAPARIN 40 MG/0.4 ML SYR SC SCH (08:44)
--- NOTE | 2018-11-15 09:48 | ASMTCMCOM ---
CM Note CM Note Notes: Met with Pt and chart reviewed for discharge. Jo is an 83 year old admitted with SOB since last Thu, Asthma exacerbation, hypoxia, respiratory failure. Pt has a history of HTN, Stroke 2012, COPD, CHF, PE, and Mastectomy. Pt's prednisone decreased to daily. PT/OT to consult. Pt is eager to go home. CM available for needs. PLAN: TBD Date Signed: 11/15/2018 09:48 AM Electronically Signed By:Lisa Santiago
[2018-11-15 11:57] VITALS: BP 172/94
--- NOTE | 2018-11-16 03:52 | GDS ---
[f rep st] DISCHARGE SUMMARY DISCHARGE DIAGNOSES: 1. Asthma exacerbation. 2. Acute respiratory failure. 3. Viral bronchitis with human metapneumovirus. 4. Atrial fibrillation. 5. Hypertension. HISTORY: The patient is an 83-year-old female who presents for shortness of breath and wheezing. She has a history of asthma. She got a steroid burst as an outpatient which initially worked, but once i t wore off, she was back into respiratory distress. Her respiratory PCR was positive for human metap neumovirus. She was treated with IV Solu-Medrol and nebulizers. She was 86% on room air requiring 3 L of oxygen. With respiratory support, she did improve and is back to room air at discharge. She re quests a very slow prednisone taper which has worked for her well in the past. She was not on antibi otics due to confirmed viral infection. DISCHARGE MEDICATIONS: Please see computerized record for full detailed list. New medications predni sone taper by 10 mg every 3 days until off. ADDITIONAL DISCHARGE INSTRUCTIONS: Follow up with Marlee Houston, Primary Care. The patient seen and examined by me on the day of discharge. /[id number]/MODL
[2018-11-16] MEDS ORDERED: ALENDRONATE SODIUM 70 MG TAB PO SCH (07:00)
[2018-11-16] MEDS ORDERED: Estradiol [Vagifem] 10 MCG VG SCH (07:00)
== END 2018-11-15 14:02 | disposition home or self-care (01) ==
LOC: F1N 02:10
PROVIDERS: ADMIT Family Medicine; ATTEND Internal Medicine
DX: J45.901 Unspecified asthma with (acute) exacerbation (principal); J96.01 Acute respiratory failure with hypoxia; J20.8 Acute bronchitis due to other specified organisms; B97.81 Human metapneumovirus as the cause of diseases classified elsewhere; I48.91 Unspecified atrial fibrillation; I10 Essential (primary) hypertension
CPT/HCPCS: 71046; 93005; 96372; 96374; 97161; 99285; G0378; J1650; J2930; J7512

== ENCOUNTER → 2019-01-13 | Outpatient (CLI) | payer OTHER | LOC: BMCIMAGING 13:17 ==